=== PATIENT | female | born 1955 ===

== ENCOUNTER 2017-08-01 14:10 | Inpatient (IN) | payer MEDICAID ==
[2017-08-01] MEDS ORDERED: Oxycodone/Acetaminophen 5/325 mg Tab ONE (14:40)
[2017-08-01] MEDS ORDERED: Oxycodone/Acetaminophen 5/325 mg Tab PO ONE (14:45)
--- NOTE | 2017-08-01 14:59 | RAD ---
HISTORY: SOB COMPARISON: Chest radiograph 06/17/2012. TECHNIQUE: Chest PA and lateral FINDINGS: LUNGS: No infiltrate is appreciate bilaterally although there is some crowding of the bilateral bronchovascular markings. PLEURA: No significant pleural effusion identified. No pneumothorax apparent. CARDIOVASCULAR: Normal. OSSEOUS STRUCTURES: No significant abnormalities. VISUALIZED UPPER ABDOMEN: Normal. OTHER FINDINGS: None. IMPRESSION: Crowding of the bronchovascular markings is seen at the bilateral bases. No acute infiltrate or pleural effusion bilaterally.
--- NOTE | 2017-08-01 15:00 | C.PDOC ---
History Of Present Illness 62 y/o female with a hx of asthma and diabetes, c/o swelling and pain to the left leg that began today. Patient goes to the clinic here at [facility]. Denies chest pain, SOB, palpitations, abdominal pain, trauma to the legs, or any other complaints. Time Seen by Provider: 08/01/17 14:15 Chief Complaint (Nursing): Lower Extremity Problem/Injury History Per: Patient History/Exam Limitations: no limitations Onset/Duration Of Symptoms: Hrs Current Symptoms Are (Timing): Still Present Severity: Mild Recent travel outside of the [place]: No Additional History Per: Patient Past Medical History Reviewed: Historical Data, Nursing Documentation, Vital Signs Vital Signs: Last Vital Signs Temp 97.3 F L 08/01/17 14:31 Pulse 93 H 08/01/17 16:05 Resp 20 08/01/17 16:05 BP 137/69 08/01/17 16:05 Pulse Ox 99 08/01/17 16:23 - Medical History PMH: Arthritis, Bronchitis, Diabetes, Hypercholesterolemia, Osteoporosis Family History: States: Unknown Family Hx - Social History Hx Alcohol Use: Yes Hx Substance Use: No Review Of Systems Except As Marked, All Systems Reviewed And Found Negative. Constitutional: Negative for: Other (trauma) Cardiovascular: Negative for: Chest Pain, Palpitations Respiratory: Negative for: Shortness of Breath Gastrointestinal: Negative for: Abdominal Pain Musculoskeletal: Positive for: Leg Pain (Pain and swelling to the left leg) Neurological: Negative for: Weakness, Numbness Physical Exam - Physical Exam Appears: Non-toxic, No Acute Distress Skin: Warm, Dry Head: Atraumatic, Normacephalic Oral Mucosa: Moist Chest: Symmetrical Cardiovascular: Rhythm Regular, No Murmur Respiratory: Normal Breath Sounds, No Rales, No Rhonchi, No Wheezing Gastrointestinal/Abdominal: Soft, No Tenderness Back: No CVA Tenderness Extremity: Normal ROM, Tenderness (Tenderness to palpation.), Capillary Refill ( <2secs), Swelling (Swelling to the left lower extremity) Pulses: Left Dorsalis Pedis: Normal, Right Dorsalis Pedis: Normal Neurological/Psych: Oriented x3 Gait: Steady ED Course And Treatment - Laboratory Results Result Diagrams: 08/01/17 14:58 08/01/17 14:58 Lab Interpretation: No Acute Changes ECG: Interpreted By Me ECG Rhythm: Sinus Rhythm ECG Interpretation: No Acute Changes Rate From EC O2 Sat by Pulse Oximetry: 99 (RA) Pulse Ox Interpretation: Normal - Radiology CXR: Interpreted by Me CXR Interpretation: Yes: No Acute Disease Progress Note: Doppler US LE: left leg (+) DVT. Treated with lovenox 80 mg SQ Reassessment Condition: Improved - Physician Consult Information Physician Contacted: Brandon Velez Jr. Outcome Of Conversation: admit Medical Decision Making Medical Decision Making: Plans: * EKG * Blood labs * Percocet * IV fluids * UA * Vascular lab Disposition Discussed With Dr.: Brandon Velez Jr. Doctor Will See Patient In The: Hospital - Disposition Disposition: HOSPITALIZED Disposition Time: 16:30 Condition: STABLE - POA Present On Arrival: None - Clinical Impression Clinical Impression: Deep venous thrombosis of lower extremity - Scribe Statement The provider has reviewed the documentation as recorded by the Scribe Jacki irby All medical record entries made by the Scribe were at my direction and personally dictated by me. I have reviewed the chart and agree that the record accurately reflects my personal performance of the history, physical exam, medical decision making, and the department course for this patient. I have also personally directed, reviewed, and agree with the discharge instructions and disposition. Decision To Admit - Pt Status Changed To: Hospital Disposition Of: Inpatient - Admit Certification Admit to Inpatient:: After my assessment, the patient will require hospitalization for at least two midnights. This is because of the severity of symptoms shown, intensity of services needed, and/or the medical risk in this patient being treated as an outpatient. - InPatient: Physician Admission Certification: I certify that this patient requires 2 or more midnights of care for the following reason:: Extensive DVT - . Bed Request Type: Regular Admitting Physician: Brandon Velez Jr. Patient Diagnosis: Deep venous thrombosis of lower extremity
[2017-08-01 15:08] LABS: EOS # 0.2 K/uL (0.0-0.7); MONO # 0.7 K/uL (0.0-0.8)
[2017-08-01 15:14] LABS: BASO # 0.2 K/uL (0.0-0.2); BASO % 1.2 % (0.0-2.0); EOS % 1.3 % (0.0-4.0); HEMATOCRIT 46.2 % (34.0-47.0); LYMPH # 4.5 K/uL (1.0-4.3); LYMPH % 31.8 % (20.0-40.0); MEAN CELL VOLUME 90.6 fL (81.0-99.0); MEAN CORPUSCULAR HGB CONC 34.3 g/dL (33.0-37.0); MEAN PLATELET VOLUME 10.8 fL (7.2-11.7); NRBC % 0.6 % (0.0-2.0); RED CELL DISTRIBUTION WIDTH 13.2 % (11.5-14.5); WHITE BLOOD COUNT 14.2 K/uL (4.8-10.8)
[2017-08-01] MEDS ORDERED: Enoxaparin 40 mg Syringe SC STA (15:43)
[2017-08-01 15:54] LABS: ALB/GLOB RATIO 1.3 (1.0-2.1); ALKALINE PHOSPHATASE 92 U/L (38-126); ALT/SGPT 21 U/L (9-52); AST/SGOT 46 U/L (14-36); BILIRUBIN,TOTAL 1.3 mg/dL (0.2-1.3); BLOOD UREA NITROGEN 16 mg/dL (7-17); CALCIUM 9.6 mg/dl (8.6-10.4); CARBON DIOXIDE 16 mmol/L (22-30); CHLORIDE 100 mmol/L (98-107); GFR AFRICAN-AMERICAN > 60; POTASSIUM 5.2 mmol/L (3.6-5.2); SODIUM 134 mmol/L (132-148); TOTAL PROTEIN 8.6 g/dL (6.3-8.3)
[2017-08-01] MEDS ORDERED: Enoxaparin 80 mg Syringe ONE (15:55)
[2017-08-01] MEDS ORDERED: Morphine 4 MG/ML VIAL ONE (16:05)
[2017-08-01 16:41] LABS: GLUCOSE,RANDOM 433 mg/dL (65-105)
[2017-08-01] MEDS ORDERED: Sodium Chloride 0.9% 1,000 ML IV ONE (16:48)
--- NOTE | 2017-08-01 17:35 | CP.PCM.HP ---
History of Present Illness - History of Present Illness History of Present Illness: Medicine H/P CC: Leg Pain HPI: Patience is a 62F with a PMH of DM, CAD, HLD comes to the ED with acute onset of L. Leg pain. She states the pain is very severe and nothing makes it better or worse. She describes the pain as sharp. The pain radiates up the leg from below the knee. She describes it as very severe. It has been constant since its onset. She is also complaining of SOB, cough and chest pain. She was given lovenox 80mg in the ED as well as morphine for the pain. She denies any nausea, vomiting, fever, chills or diarrhea ROS: Per HPI PMH: DM, HLD, CAD PSH: denies FH: noncontributory SH: smoked for 4 years but has not smoked in the last week, social drinker, no drugs Meds: Metformin, insulin All: None Present on Admission - Present on Admission Any Indicators Present on Admission: No Review of Systems - Review of Systems All systems: reviewed and no additional remarkable complaints except (per hpi) Past Patient History - Past Social History Smoking Status: Light Smoker < 10 Cigarettes Daily - CARDIAC Hx Hypercholesterolemia: Yes - PULMONARY Hx Bronchitis: Yes - ENDOCRINE/METABOLIC Hx Endocrine Disorders: Yes Hx Diabetes Mellitus Type 1: Yes - MUSCULOSKELETAL/RHEUMATOLOGICAL Hx Arthritis: Yes Hx Osteoporosis: Yes - PSYCHIATRIC Hx Substance Use: No - SURGICAL HISTORY Hx Surgeries: No Meds Allergies/Adverse Reactions: Allergies Allergy/AdvReac Type Severity Reaction Status Date / Time No Known Allergies Allergy Verified 08/01/17 14:22 Physical Exam - Constitutional Additional comments: clearly anxious and in pain - Head Exam Head Exam: ATRAUMATIC, NORMAL INSPECTION, NORMOCEPHALIC - Eye Exam Eye Exam: EOMI Pupil Exam: NORMAL ACCOMODATION - ENT Exam ENT Exam: Mucous Membranes Moist - Respiratory Exam Respiratory Exam: Clear to Auscultation Bilateral, NORMAL BREATHING PATTERN - Cardiovascular Exam Cardiovascular Exam: REGULAR RHYTHM - GI/Abdominal Exam GI & Abdominal Exam: Normal Bowel Sounds, Soft. absent: Distended, Tenderness - Extremities Exam Extremities exam: Positive for: calf tenderness, joint swelling, tenderness Additional comments: L leg is more swollen than the left and very tender to palpation - Neurological Exam Neurological exam: Alert, Oriented x3 - Psychiatric Exam Psychiatric exam: Normal Affect, Normal Mood - Skin Skin Exam: Dry, Intact, Normal Color, Warm Results - Vital Signs Recent Vital Signs: Last Vital Signs Temp 97.3 F L 08/01/17 14:31 Pulse 93 H 08/01/17 16:05 Resp 20 08/01/17 16:05 BP 137/69 08/01/17 16:05 Pulse Ox 99 08/01/17 16:25 - Labs Result Diagrams: 08/01/17 14:58 08/01/17 14:58 Labs: Laboratory Results - last 24 hr 08/01/17 08/01/17 08/01/17 14:58 14:58 15:42 WBC 14.2 H RBC 5.10 Hgb 15.8 Hct 46.2 MCV 90.6 MCH 31.0 MCHC 34.3 RDW 13.2 Plt Count 184 MPV 10.8 Neut % (Auto) 60.7 Lymph % (Auto) 31.8 [place] % (Auto) 5.0 Eos % (Auto) 1.3 Baso % (Auto) 1.2 Neut # 8.6 H Lymph # 4.5 H [place] # 0.7 Eos # 0.2 Baso # 0.2 PT 11.1 INR 1.0 APTT 24 Sodium 134 Potassium 5.2 Chloride 100 Carbon Dioxide 16 L Anion Gap 23 H BUN 16 Creatinine 0.7 Est GFR ( Amer) > 60 Est GFR (Non-Af Amer) > 60 Random Glucose 433 H* Calcium 9.6 Total Bilirubin 1.3 AST 46 H ALT 21 Alkaline Phosphatase 92 NT-Pro-B Natriuret Pep 19.9 Total Protein 8.6 H Albumin 4.8 Globulin 3.8 Albumin/Globulin Ratio 1.3 Assessment & Plan (1) Deep venous thrombosis of lower extremity Assessment and Plan: Vascular (Danielson) Consider IVC filter CTA - F/U Prelim LE Doppler - Extensive LLE DVT Lovenox 80 SC Q12 Morphine 2 IV Q4 PRN Status: Acute Priority: High (2) Diabetes Assessment and Plan: ISS High accuchecks zestril 2.5 PO QD Crestor 20 PO HS Status: Chronic Priority: Medium
[2017-08-01] MEDS ORDERED: Sodium Chloride 0.9% 1,000 ML ONE (17:56)
[2017-08-01] MEDS ORDERED: Iodixanol 320 MG/ML 100 ML BOTTLE IV ONE (18:02)
--- NOTE | 2017-08-01 19:17 | CT ---
EXAM: CT Angiography Chest With Intravenous Contrast EXAM DATE/TIME: 08/01/2017 5:12 PM CLINICAL HISTORY: 62 years old, female; Signs and symptoms; Other: Dvt left leg; Additional info: R/O pe TECHNIQUE: Axial computed tomographic angiography images of the chest with intravenous contrast using pulmonary embolism protocol. All CT scans at this facility use one or more dose reduction techniques, viz.: automated exposure control; ma/kV adjustment per patient size (including targeted exams where dose is matched to indication; i.e. head); or iterative reconstruction technique. MIP reconstructed images were created and reviewed. Coronal and sagittal reformatted images were created and reviewed. CONTRAST: 100 mL of VISIPAQUE administered intravenously. COMPARISON: There are no prior studies for comparison. FINDINGS: Artifacts: Motion artifact degrades image quality. Heart, Aorta and Pulmonary arteries: Heart size is normal. There are coronary artery calcifications.There is no aneurysm or dissection.There are vascular calcifications. Streak and motion limit evaluation of pulmonary arteries. There are bilateral lower lobe pulmonary emboli. There are upper lobe pulmonary emboli right greater than left. Middle lobe vessels are difficult to evaluate. Lungs and Pleural Spaces: Trachea and main bronchi are patent.There is no pneumothorax. There is no lobar or segmental consolidation. There is subsegmental atelectasis in the lingula. There is atelectasis and scarring at the lung bases. There is dependent atelectasis bilaterally. There are no effusions. Mediastinum: There are mildly prominent mediastinal and hilar nodes. Esophagus is unremarkable. Thyroid: Thyroid is not optimally demonstrated. Bones/joints: Bony structures are osteopenic with degenerative change. Soft tissues: unremarkable Upper abdomen: There are no acute abnormalities in the visualized portion of the abdomen.Pancreas is atrophic. IMPRESSION: Limited by streak and patient motion, bilateral pulmonary emboli, clot burden in greatest in lower lobe arteries, no focal pneumonia
--- NOTE | 2017-08-01 22:21 | CP.PCM.CON ---
History of Present Illness - History of Present Illness History of Present Illness: Vascular Surgery Consult Note for Dr. Hinkle Reason for Consult: Left lower extremity DVT, IVC filter placement 62 F with PMH of DM, HLD, CAD present with left lower extremity pain/swelling and shortness of breath. Patient states that she has had leg pain and swelling for 2-3 weeks. He reports the SOB has been present for a few days. She states a sudden onset of leg pain and states it has gotten progressively. Patient states she never had this type of pain before. She rates pain as severe. She describes the pain as constant and sharp localized to the left thigh. Denies any alleviating or exacerbating factors. Denies any fever/chills, chest pain, palpitations, abdominal pain, nausea/vomiting, diarrhea. PMH: DM, HLD, CAD Meds: As per EMR Allergy: NKDA PSH: denies Hosp: denies FH: noncontributory SH: current smoker - smokes 4 cigarettes per day for years, social drinker, denies illicit drug use Review of Systems - Review of Systems All systems: reviewed and no additional remarkable complaints except (SOB, leg pain/edema) Past Patient History - Past Social History Smoking Status: Former Smoker - CARDIAC Hx Hypercholesterolemia: Yes - PULMONARY Hx Bronchitis: Yes - NEUROLOGICAL Hx Neurological Disorder: No - HEENT Hx HEENT Problems: No - ENDOCRINE/METABOLIC Hx Endocrine Disorders: Yes Hx Diabetes Mellitus Type 1: Yes - HEMATOLOGICAL/ONCOLOGICAL Hx Blood Transfusions: No - INTEGUMENTARY Hx Dermatological Problems: No - MUSCULOSKELETAL/RHEUMATOLOGICAL Hx Falls: No - GASTROINTESTINAL Hx Gastrointestinal Disorders: No - GENITOURINARY/GYNECOLOGICAL Hx Genitourinary Disorders: No - PSYCHIATRIC Hx Substance Use: No - SURGICAL HISTORY Hx Surgeries: No - ANESTHESIA Hx Anesthesia Reactions: No Hx Malignant Hyperthermia: No Has any member of the family had a problem w/ anesthesia?: No Meds Allergies/Adverse Reactions: Allergies Allergy/AdvReac Type Severity Reaction Status Date / Time No Known Allergies Allergy Verified 08/01/17 14:22 - Medications Medications: Current Medications Docusate Sodium (Colace) 100 mg PO BID PRN PRN Reason: Constipation Enoxaparin Sodium (Lovenox) 80 mg SC Q12H [facility] Ibuprofen (Motrin Tab) 400 mg PO Q6 PRN PRN Reason: Fever >100.4 F Insulin Human Regular (Novolin R) 0 unit SC ACHS [facility] PRN Reason: Protocol Lisinopril (Zestril) 2.5 mg PO DAILY [facility] Morphine Sulfate (Morphine) 2 mg IVP Q4H PRN PRN Reason: Pain, moderate (4-7) Ondansetron HCl (Zofran Inj) 4 mg IVP Q6 PRN PRN Reason: Nausea/Vomiting Rosuvastatin Calcium (Crestor) 20 mg PO HS [facility] Physical Exam - Constitutional Appears: No Acute Distress - Head Exam Head Exam: ATRAUMATIC, NORMOCEPHALIC - Eye Exam Eye Exam: Normal appearance - ENT Exam ENT Exam: Mucous Membranes Moist - Respiratory Exam Respiratory Exam: NORMAL BREATHING PATTERN - Cardiovascular Exam Cardiovascular Exam: REGULAR RHYTHM - GI/Abdominal Exam GI & Abdominal Exam: Soft. absent: Tenderness - Extremities Exam Extremities exam: Positive for: normal capillary refill, pedal pulses present Additional comments: Left leg: edematous, tender to palpation, DP/PT/popliteal found with doppler Left foot slightly colder to touch than the right foot - Back Exam Back exam: absent: CVA tenderness (L), CVA tenderness (R) - Neurological Exam Neurological exam: Alert, CN II-XII Intact - Psychiatric Exam Psychiatric exam: Normal Affect, Normal Mood - Skin Skin Exam: Dry, Intact, Normal Color Results - Vital Signs Recent Vital Signs: Last Vital Signs Temp 97.6 F 08/01/17 19:52 Pulse 96 H 08/01/17 19:52 Resp 20 08/01/17 19:52 BP 164/74 H 08/01/17 19:52 Pulse Ox 97 08/01/17 19:52 - Labs Result Diagrams: 08/01/17 14:58 08/01/17 14:58 Labs: Laboratory Results - last 24 hr 08/01/17 08/01/17 08/01/17 14:58 14:58 15:42 WBC 14.2 H RBC 5.10 Hgb 15.8 Hct 46.2 MCV 90.6 MCH 31.0 MCHC 34.3 RDW 13.2 Plt Count 184 MPV 10.8 Neut % (Auto) 60.7 Lymph % (Auto) 31.8 [place] % (Auto) 5.0 Eos % (Auto) 1.3 Baso % (Auto) 1.2 Neut # 8.6 H Lymph # 4.5 H [place] # 0.7 Eos # 0.2 Baso # 0.2 PT 11.1 INR 1.0 APTT 24 Sodium 134 Potassium 5.2 Chloride 100 Carbon Dioxide 16 L Anion Gap 23 H BUN 16 Creatinine 0.7 Est GFR ( Amer) > 60 Est GFR (Non-Af Amer) > 60 POC Glucose (mg/dL) Random Glucose 433 H* Calcium 9.6 Total Bilirubin 1.3 AST 46 H ALT 21 Alkaline Phosphatase 92 NT-Pro-B Natriuret Pep 19.9 Total Protein 8.6 H Albumin 4.8 Globulin 3.8 Albumin/Globulin Ratio 1.3 08/01/17 08/01/17 18:54 21:41 WBC RBC Hgb Hct MCV MCH MCHC RDW Plt Count MPV Neut % (Auto) Lymph % (Auto) [place] % (Auto) Eos % (Auto) Baso % (Auto) Neut # Lymph # [place] # Eos # Baso # PT INR APTT Sodium Potassium Chloride Carbon Dioxide Anion Gap BUN Creatinine Est GFR ( Amer) Est GFR (Non-Af Amer) POC Glucose (mg/dL) 361 H 368 H Random Glucose Calcium Total Bilirubin AST ALT Alkaline Phosphatase NT-Pro-B Natriuret Pep Total Protein Albumin Globulin Albumin/Globulin Ratio Assessment & Plan - Assessment and Plan (Free Text) Plan: 62 F with bilateral pulmonary embolisms and Left lower extremity DVT -Therapeutic lovenox -Possible IVC filter placement today -Analgesics PRN -Management as per primary -Discussed with Dr. Arin Bruner PGY1
[2017-08-01 22:58] LABS: RBC URINE 1 /hpf (0-3); URINE BILIRUBIN NEGATIVE (NEGATIVE); URINE BLOOD NEGATIVE (NEGATIVE); URINE COLOR Yellow (YELLOW); URINE GLUCOSE (UA) 3+ mg/dL (Normal); URINE KETONE TRACE mg/dL (NEGATIVE); URINE LEUKOCYTE ESTERASE NEG Leu/uL (Negative); URINE PROTEIN NEGATIVE (NEGATIVE); URINE UROBILINOGEN NORMAL mg/dL (0.2-1.0); WBC URINE 1 /hpf (0-5)
[2017-08-01] MEDS: (Novolin R) Insulin Human Regular 100 units/ml vial SC SCH (23:12)
[2017-08-02] MEDS: Enoxaparin 80 mg Syringe SC SCH ×2 (03:54→16:30)
[2017-08-02] MEDS: (Novolin R) Insulin Human Regular 100 units/ml vial SC SCH ×5 (08:21→22:06)
[2017-08-02 08:52] LABS: BASO # 0.1 K/uL (0.0-0.2); BASO % 0.7 % (0.0-2.0); EOS % 0.2 % (0.0-4.0); HEMATOCRIT 43.2 % (34.0-47.0); LYMPH # 3.9 K/uL (1.0-4.3); LYMPH % 27.2 % (20.0-40.0); MEAN CELL VOLUME 91.1 fL (81.0-99.0); MEAN CORPUSCULAR HEMOGLOBIN 30.9 pg (27.0-31.0); MEAN CORPUSCULAR HGB CONC 33.9 g/dL (33.0-37.0); MEAN PLATELET VOLUME 11.5 fL (7.2-11.7); MONO # 0.7 K/uL (0.0-0.8); NRBC % 0.2 % (0.0-2.0); RED CELL DISTRIBUTION WIDTH 13.5 % (11.5-14.5); WHITE BLOOD COUNT 14.4 K/uL (4.8-10.8)
[2017-08-02] MEDS ORDERED: Midazolam 2 MG/2 ML VIAL ONE (08:56)
[2017-08-02] MEDS ORDERED: Iodixanol 320 MG/ML 200 ML BOTTLE IV ONE (09:17)
[2017-08-02] MEDS ORDERED: Lidocaine 2% w Epi 1:100,000 Inj IJ ONE (09:17)
[2017-08-02] MEDS ORDERED: HEPARIN-NS 5,000 UNITS/500 ML 5,000 UNIT/500 ML BAG IV ONE (09:17)
[2017-08-02 09:22] LABS: ALB/GLOB RATIO 1.5 (1.0-2.1); ALKALINE PHOSPHATASE 90 U/L (38-126); ALT/SGPT 29 U/L (9-52); AST/SGOT 27 U/L (14-36); BILIRUBIN,TOTAL 1.1 mg/dL (0.2-1.3); BLOOD UREA NITROGEN 20 mg/dL (7-17); CALCIUM 8.6 mg/dl (8.6-10.4); CARBON DIOXIDE 13 mmol/L (22-30); CHLORIDE 98 mmol/L (98-107); GFR AFRICAN-AMERICAN > 60; GLUCOSE,RANDOM 387 mg/dL (65-105); POTASSIUM 4.3 mmol/L (3.6-5.2); SODIUM 132 mmol/L (132-148); TOTAL PROTEIN 7.4 g/dL (6.3-8.3)
[2017-08-02] MEDS ORDERED: Lactated Ringer's 1,000 ML IV ONE (09:29)
[2017-08-02] MEDS: ceFAZolin IV 1 gm in Dextrose 1 GM/50 ML BAG IVPB ONE ×2 (09:31→09:41)
--- NOTE | 2017-08-02 09:56 | CP.PCM.PN ---
Subjective - Date & Time of Evaluation Date of Evaluation: 08/02/17 Time of Evaluation: 09:54 - Subjective Subjective: Patient seen and examined. Much less distress Going for IVC filter today No other complaints at this time Objective - Vital Signs/Intake and Output Vital Signs (last 24 hours): Temp Pulse Resp BP Pulse Ox 98.4 F 106 H 20 150/91 H 97 08/02/17 08:41 08/02/17 08:41 08/02/17 08:41 08/02/17 08:41 08/02/17 08:41 Intake and Output: 08/02/17 08/02/17 06:59 18:59 Intake Total 240 Balance 240 - Medications Medications: Current Medications Docusate Sodium (Colace) 100 mg PO BID PRN PRN Reason: Constipation Enoxaparin Sodium (Lovenox) 80 mg SC Q12H [facility] Last Admin: 08/02/17 03:54 Dose: 80 mg Ibuprofen (Motrin Tab) 400 mg PO Q6 PRN PRN Reason: Fever >100.4 F Insulin Human Regular (Novolin R) 0 unit SC ACHS [place] PRN Reason: Protocol Last Admin: 08/02/17 08:21 Dose: 10 unit Lisinopril (Zestril) 2.5 mg PO DAILY [facility] Morphine Sulfate (Morphine) 2 mg IVP Q4H PRN PRN Reason: Pain, moderate (4-7) Last Admin: 08/02/17 03:55 Dose: 2 mg Ondansetron HCl (Zofran Inj) 4 mg IVP Q6 PRN PRN Reason: Nausea/Vomiting Rosuvastatin Calcium (Crestor) 20 mg PO HS [facility] Last Admin: 08/01/17 23:12 Dose: 20 mg - Labs Labs: 08/02/17 08:38 08/02/17 08:38 PT 11.1 SECONDS (9.7-12.2) 08/01/17 15:42 INR 1.0 08/01/17 15:42 APTT 24 SECONDS (21-34) 08/01/17 15:42 - Additional Findings Additional findings: - Head Exam Head Exam: ATRAUMATIC, NORMAL INSPECTION, NORMOCEPHALIC - Eye Exam Eye Exam: EOMI Pupil Exam: NORMAL ACCOMODATION - ENT Exam ENT Exam: Mucous Membranes Moist - Respiratory Exam Respiratory Exam: Clear to Auscultation Bilateral, NORMAL BREATHING PATTERN - Cardiovascular Exam Cardiovascular Exam: REGULAR RHYTHM - GI/Abdominal Exam GI & Abdominal Exam: Normal Bowel Sounds, Soft. absent: Distended, Tenderness - Extremities Exam Extremities exam: Positive for: calf tenderness, joint swelling, tenderness Additional comments: L leg is more swollen than the left and very tender to palpation - Neurological Exam Neurological exam: Alert, Oriented x3 - Psychiatric Exam Psychiatric exam: Normal Affect, Normal Mood - Skin Skin Exam: Dry, Intact, Normal Color, Warm Assessment and Plan (1) Pulmonary embolism, bilateral Assessment & Plan: CTA - Bilateral PE most in the Lower lobes Vascular (Arin) lovenox 80 SC Q12 IVC filter today Status: Acute (2) Deep venous thrombosis of lower extremity Assessment & Plan: Vascular (Arin) IVC filter today thombectomy tomorrow Prelim LE Doppler - Extensive LLE DVT Lovenox 80 SC Q12 Morphine 2 IV Q4 PRN Restoril 30 PO HS Status: Acute (3) Hypercoagulable state Assessment & Plan: R/O Pelvic mass Pelvic US - F/U CEA CA 125 CA 19-9 Status: Acute (4) Diabetes Assessment & Plan: ISS High accuchecks zestril 2.5 PO QD Crestor 20 PO HS A1C 9.1 Status: Chronic
[2017-08-02] MEDS ORDERED: Labetalol 25mg/5ml Syringe ONE (10:03)
[2017-08-02] MEDS ORDERED: HYDROmorphone 0.5 mg/0.5 ml ISec IVP PRN (10:13)
--- NOTE | 2017-08-02 10:21 | PCM.SURG1 ---
Surgeon's Initial Post Op Note - Surgeon's Notes Surgeon: Arin Upholstery Cutter: PGY4 Type of Anesthesia: IV Sedation, Local Pre-Operative Diagnosis: Bilateral pulmonary embolism, LLE DVT Operative Findings: good placement of IVC filter Post-Operative Diagnosis: Bilateral pulmonary embolism, LLE DVT Operation Performed: Insertion of retrievable IVC filter Specimen/Specimens Removed: N/A Estimated Blood Loss: EBL {In ML}: 20 Blood Products Given: N/A Drains Used: No Drains Post-Op Condition: Good Date of Surgery/Procedure: 08/02/17 Time of Surgery/Procedure: 09:30
--- NOTE | 2017-08-02 11:34 | RAD ---
PROCEDURE: Intraoperative fluoroscopy HISTORY: LT. LOWER EXTREMITY DVT AND PE COMPARISON: Not available TECHNIQUE: Intraoperative fluoroscopy was provided for inferior vena caval filter placement. Total time of fluoroscopy was 71.6 seconds. FINDINGS: Four fluoroscopic spot films are submitted. Films are on file for review. IMPRESSION: Fluoroscopy provided.
--- NOTE | 2017-08-02 15:49 | VASCLAB ---
PROCEDURE: Lower Extremity Venous Duplex Exam. HISTORY: edema PRIORS: None. TECHNIQUE: Bilateral common femoral, femoral, popliteal and posterior tibial, peroneal and great saphenous veins were evaluated. Flow was assessed with color Doppler, compressibility, assessment of phasic flow and augmentation response. Report prepared by IVY Long, RVT FINDINGS: RIGHT: 1. Common Femoral Vein: 1.1. Compressibility - Fully compressible: Thrombus - None : Flow - Phasic: Augmentation -Normal: Reflux - None. 2. Femoral Vein: 2.1. Compressibility - Fully compressible: Thrombus - None : Flow - Phasic: Augmentation -Normal: Reflux - None. 3. Popliteal Vein: 3.1. Compressibility - Fully compressible: Thrombus - None : Flow - Phasic: Augmentation -Normal: Reflux - None. 4. Posterior Tibial Vein: 4.1. Compressibility - Fully compressible: Thrombus - None: Flow - Phasic: Augmentation -Normal: Reflux - None. 5. Peroneal Vein: 5.1. Compressibility - Fully compressible: Thrombus - None: Flow - Phasic: Augmentation -Normal: Reflux - None. 6. Great Saphenous Vein: 6.1. Compressibility - Fully compressible: Thrombus - None: Flow - Phasic: Augmentation - Normal: Reflux - None. LEFT: 1. Common Femoral Vein: 1.1. Compressibility - Partial: Thrombus - Acute: Flow - Absent : Augmentation -None: Reflux - None. 2. Femoral Vein: 2.1. Compressibility - Partial: Thrombus - Acute: Flow - Absent : Augmentation -None: Reflux - None. 3. Popliteal Vein: 3.1. Compressibility - Partial: Thrombus - Acute : Flow - Absent : Augmentation -None: Reflux - None. 4. Posterior Tibial Vein: 4.1. Compressibility - Partial: Thrombus - Acute: Flow - Absent : Augmentation -None: Reflux - None. 5. Peroneal Vein: 5.1. Compressibility - Partial: Thrombus - Acute: Flow - Absent : Augmentation -None: Reflux - None. 6. Great Saphenous Vein: 6.1. Compressibility - Partial: Thrombus - Acute: Flow - Absent : Augmentation - None: Reflux - None. OTHER FINDINGS: SARAH Gonzalez notified about the findings. IMPRESSION: Right: No evidence of deep or superficial vein thrombosis of the right lower extremity. Normal valve function noted of the right side. Left: Acute thrombosis of the left lower extremity with severe reduction of the venous return.
--- NOTE | 2017-08-02 19:46 | OP ---
PROCEDURE DATE: 08/02/2017 PREOPERATIVE DIAGNOSES: Deep vein thrombosis of left leg and pulmonary embolism. PROCEDURE CARRIED OUT: Placement of [place] removal of filter via right femoral vein with C-arm fluoroscopy, ultrasound-guided puncture, and micropuncture technique. SURGEON: Patrick Hinkle Jr., MD MACHINE RUG CLEANER: Dr. Pleitez. ANESTHESIOLOGIST: Mr. Sterling. INDICATIONS: The patient is a middle-aged woman, history of leg swelling, found to have an extensive DVT involving up to and superior to common femoral vein. Because of her pulmonary embolism, filter will be inserted. Discussion will be had regarding thrombolytic therapy for the left leg. PROCEDURE: The patient was given local anesthesia and using ultrasound guidance, right femoral wrist punctured. Initially, a micropuncture was made into the femoral artery after this had been controlled. We then placed a filter via the right groin. Placing a vena cavagram showing location of the complex of aortic veins and location of the renal veins. Filter was then deployed just below the level of the renal veins in an upright position with minimal tilt. It was flushed with heparinized saline. Catheter was removed. Subsequent pictures again confirmed the findings of its position. We then applied pressure to the groin and bleeding was terminated. Blood loss in the procedure was 5 mL. Operation carried out, placement of [place] removal of filter via right femoral vein with C-arm fluoroscopy, ultrasound-guided puncture and micropuncture technique. Ultrasound images from the groin shows that the vein was approximately 14 mm in diameter with normal compressibility and no intraluminal thrombosis. Patrick Hinkle Jr., MD
--- NOTE | 2017-08-02 22:23 | CARD ---
APPROVED REPORT EKG Measurement Heart [id number] OH [id number] [id number] <Conclusion> Normal sinus rhythm Minimal voltage criteria for LVH, may be normal variant Possible Anterior infarct, age undetermined Abnormal ECG
--- NOTE | 2017-08-02 23:17 | US ---
EXAM: US Pelvis Complete, Transabdominal US Pelvis, Transvaginal CLINICAL HISTORY: 62 years old, female; Signs and symptoms; Other: R/O ovarian /pelvic mass; Additional info: R/O ovarian/pelvic mass TECHNIQUE: Real-time transabdominal and transvaginal pelvic ultrasound (complete) with image documentation. Transvaginal imaging was used for better evaluation of the endometrium and adnexa. COMPARISON: No relevant prior studies available. FINDINGS: Uterus/cervix: Heterogeneous in echogenicity and unremarkable in size measuring 7.2 x 3.3 x 4.2 cm. A fibroid is detected within the mid body of the uterus measuring 11 mm in greatest dimension. Normal endometrial stripe thickness, measuring 1.9 mm. Despite prolonged interrogation, neither ovary was visualized. Free fluid: No free fluid. IMPRESSION: Fibroid uterus. Despite prolonged interrogation, neither ovary was visualized. Patient unable to void during examination.
[2017-08-03] MEDS: Enoxaparin 80 mg Syringe SC SCH ×2 (04:20→16:45)
[2017-08-03 07:47] LABS: BASO # 0.1 K/uL (0.0-0.2); BASO % 0.8 % (0.0-2.0); EOS # 0.1 K/uL (0.0-0.7); EOS % 0.8 % (0.0-4.0); HEMATOCRIT 41.7 % (34.0-47.0); LYMPH % 26.9 % (20.0-40.0); MEAN CORPUSCULAR HGB CONC 34.4 g/dL (33.0-37.0); MEAN PLATELET VOLUME 11.7 fL (7.2-11.7); MONO % 6.6 % (0.0-10.0); NRBC % 0.3 % (0.0-2.0); RED CELL DISTRIBUTION WIDTH 13.1 % (11.5-14.5); WHITE BLOOD COUNT 14.9 K/uL (4.8-10.8)
[2017-08-03] MEDS: (Novolin R) Insulin Human Regular 100 units/ml vial SC SCH ×4 (08:42→22:10)
[2017-08-03 08:53] LABS: CARCINOEMBRYONIC ANTIGEN 2.1 ng/mL (0-3.0)
[2017-08-03 08:56] LABS: CA 19-9 < 1.4 U/mL (0-37)
[2017-08-03 09:27] LABS: ALB/GLOB RATIO 1.4 (1.0-2.1); ALKALINE PHOSPHATASE 92 U/L (38-126); ALT/SGPT 28 U/L (9-52); AST/SGOT 32 U/L (14-36); BILIRUBIN,TOTAL 1.3 mg/dL (0.2-1.3); BLOOD UREA NITROGEN 20 mg/dL (7-17); CALCIUM 9.1 mg/dl (8.6-10.4); CARBON DIOXIDE 16 mmol/L (22-30); CHLORIDE 96 mmol/L (98-107); GFR AFRICAN-AMERICAN > 60; GLUCOSE,RANDOM 399 mg/dL (65-105); POTASSIUM 4.4 mmol/L (3.6-5.2); SODIUM 129 mmol/L (132-148)
[2017-08-03] MEDS ORDERED: Promethazine/Cod 6.25mg-10mg/5ml Syr UD PO PRN (09:33)
--- NOTE | 2017-08-03 09:36 | CP.PCM.PN ---
Subjective - Date & Time of Evaluation Date of Evaluation: 08/03/17 Time of Evaluation: 09:34 - Subjective Subjective: Patient seen and examined still having pain in her leg but states it is better complaining of cough no other complaints at this time Objective - Vital Signs/Intake and Output Vital Signs (last 24 hours): Temp Pulse Resp BP Pulse Ox 98.3 F 101 H 18 123/81 95 08/03/17 07:25 08/03/17 07:25 08/03/17 07:25 08/03/17 07:25 08/03/17 07:25 Intake and Output: 08/03/17 08/03/17 06:59 18:59 Intake Total 480 Balance 480 - Medications Medications: Current Medications Docusate Sodium (Colace) 100 mg PO BID PRN PRN Reason: Constipation Enoxaparin Sodium (Lovenox) 80 mg SC Q12H [facility] Last Admin: 08/03/17 04:20 Dose: 80 mg Ibuprofen (Motrin Tab) 400 mg PO Q6 PRN PRN Reason: Fever >100.4 F Insulin Human Regular (Novolin R) 0 unit SC ACHS [facility] PRN Reason: Protocol Last Admin: 08/03/17 08:42 Dose: 8 unit Lisinopril (Zestril) 2.5 mg PO DAILY [facility] Last Admin: 08/02/17 11:42 Dose: 2.5 mg Morphine Sulfate (Morphine) 2 mg IVP Q4H PRN PRN Reason: Pain, moderate (4-7) Last Admin: 08/02/17 11:42 Dose: 2 mg Ondansetron HCl (Zofran Inj) 4 mg IVP Q6 PRN PRN Reason: Nausea/Vomiting Promethazine HCl/Codeine (Phenergan/Codeine Oral Syrup) 5 ml PO Q4 PRN PRN Reason: Cough Rosuvastatin Calcium (Crestor) 20 mg PO HS [facility] Last Admin: 08/02/17 22:05 Dose: 20 mg Temazepam (Restoril) 30 mg PO HS PRN PRN Reason: Insomnia Last Admin: 08/02/17 23:13 Dose: 30 mg - Labs Labs: 08/03/17 07:39 08/03/17 07:39 PT 11.1 SECONDS (9.7-12.2) 08/01/17 15:42 INR 1.0 08/01/17 15:42 APTT 24 SECONDS (21-34) 08/01/17 15:42 - Additional Findings Additional findings: - Head Exam Head Exam: ATRAUMATIC, NORMAL INSPECTION, NORMOCEPHALIC - Eye Exam Eye Exam: EOMI Pupil Exam: NORMAL ACCOMODATION - ENT Exam ENT Exam: Mucous Membranes Moist - Respiratory Exam Respiratory Exam: Clear to Auscultation Bilateral, NORMAL BREATHING PATTERN - Cardiovascular Exam Cardiovascular Exam: REGULAR RHYTHM - GI/Abdominal Exam GI & Abdominal Exam: Normal Bowel Sounds, Soft. absent: Distended, Tenderness - Extremities Exam Extremities exam: Positive for: calf tenderness, joint swelling, tenderness Additional comments: L leg is more swollen than the left and very tender to palpation - Neurological Exam Neurological exam: Alert, Oriented x3 - Psychiatric Exam Psychiatric exam: Normal Affect, Normal Mood - Skin Skin Exam: Dry, Intact, Normal Color, Warm Assessment and Plan (1) Pulmonary embolism, bilateral Assessment & Plan: CTA - Bilateral PE most in the Lower lobes Vascular (Arin) lovenox 80 SC Q12 IVC filter 08/02/17 Status: Acute (2) Deep venous thrombosis of lower extremity Assessment & Plan: Vascular (Arin) IVC filter 08/03/17 thombectomy sunday Prelim LE Doppler - Extensive LLE DVT Lovenox 80 SC Q12 Morphine 2 IV Q4 PRN Restoril 30 PO HS Status: Acute (3) Hypercoagulable state Assessment & Plan: R/O Pelvic mass Pelvic US - fibroid uterus, Ovaries not visualized CEA - 2.1 CA 125 - <5.5 CA 19-9 - <1.4 F/U CT Status: Acute (4) Diabetes Assessment & Plan: ISS High accuchecks zestril 2.5 PO QD Crestor 20 PO HS A1C 9.1 Status: Chronic (5) Cough Assessment & Plan: dry cough promethazine Status: Acute
--- NOTE | 2017-08-03 15:38 | CT ---
PROCEDURE: CT Abdomen and Pelvis without intravenous contrast HISTORY: R/O mass COMPARISON: None. TECHNIQUE: Without contrast.. Contrast Dose: 0 Radiation dose: Total exam DLP = 826.48 mGy-cm. This CT exam was performed using one or more of the following dose reduction techniques: Automated exposure control, adjustment of the mA and/or kV according to patient size, and/or use of iterative reconstruction technique. FINDINGS: LOWER THORAX: Linear scar/ atelectasis in lingular segment left upper lobe. LIVER: Normal size, contour and attenuation. No mass. No biliary dilatation. Smooth contour. GALLBLADDER AND BILE DUCTS: Vicarious excretion of previously administered contrast material. No mural thickening. No evidence of cholelithiasis. . PANCREAS: Unremarkable. No gross lesion or ductal dilatation. SPLEEN: Unremarkable. ADRENALS: Unremarkable. No mass. KIDNEYS AND URETERS: No renal mass, calculus or hydronephrosis. There is persistent enhancement of the right renal cortex status post administration of intravenous contrast on examination of the 08/01/[address] angiography of the chest. This raises concern for right renal dysfunction. . The fact that this asymmetrically involves the right kidney is of uncertain significance. . Nevertheless, please correlate with renal function testing. VASCULATURE: Inferior vena caval filter. No aortic aneurysm. BOWEL: Unremarkable. No obstruction. No gross mural thickening. APPENDIX: Unremarkable. Normal appendix. PERITONEUM: Unremarkable. No free fluid. No free air. LYMPH NODES: Unremarkable. No enlarged lymph nodes. BLADDER: Unremarkable. REPRODUCTIVE: Unremarkable uterus BONES: No acute fracture. OTHER FINDINGS: There is edema in the subcutaneous soft tissues of the left thigh left lateral gluteal region. There is infiltration about and enlargement of the muscles of the left lower extremity that are included on this examination. This hazy infiltration about the musculature extends to involve the left iliacus and iliopsoas muscles. There are in origin veins seen along left pelvic side wall. This is likely related to the known lower extremity deep venous thrombosis. IMPRESSION: Infiltration about and enlargement of the left lower extremity musculature and of the left iliopsoas muscle. Subcutaneous edema of the left thigh. Engorgement of left pelvic sidewall veins. Findings consistent with extensive left lower extremity deep venous thrombosis as previously demonstrated. No pelvic mass. Inferior vena caval filter noted. Persistent right renal nephrographic phase following previous intravenous contrast administration on 08/01/2017. This raises concern for right renal dysfunction.
--- NOTE | 2017-08-03 16:23 | CP.PCM.PN ---
Subjective - Date & Time of Evaluation Date of Evaluation: 08/03/17 Time of Evaluation: 06:40 - Subjective Subjective: Vascular Surgery Note for Dr. Hinkle Patient seen and examined at bedside. No acute event overnight. She is s/p IVC filter placement POD#1. Patient still complaining of LLE pain and swelling. She states it is unchanged but controlled with medications. Patient is tolerating diet and having BMs. She will go for thrombolysis/thrombectomy on Sunday. Objective - Vital Signs/Intake and Output Vital Signs (last 24 hours): Temp Pulse Resp BP Pulse Ox 98 F 108 H 20 123/74 96 08/03/17 15:55 08/03/17 15:55 08/03/17 15:55 08/03/17 15:55 08/03/17 15:55 Intake and Output: 08/03/17 08/03/17 06:59 18:59 Intake Total 480 Balance 480 - Medications Medications: Current Medications Docusate Sodium (Colace) 100 mg PO BID PRN PRN Reason: Constipation Last Admin: 08/03/17 10:54 Dose: 100 mg Enoxaparin Sodium (Lovenox) 80 mg SC Q12H [facility] Last Admin: 08/03/17 04:20 Dose: 80 mg Ibuprofen (Motrin Tab) 400 mg PO Q6 PRN PRN Reason: Fever >100.4 F Insulin Human Regular (Novolin R) 0 unit SC ACHS [facility] PRN Reason: Protocol Last Admin: 08/03/17 11:53 Dose: 12 unit Lisinopril (Zestril) 2.5 mg PO DAILY [facility] Last Admin: 08/03/17 10:54 Dose: 2.5 mg Morphine Sulfate (Morphine) 2 mg IVP Q4H PRN PRN Reason: Pain, moderate (4-7) Last Admin: 08/02/17 11:42 Dose: 2 mg Ondansetron HCl (Zofran Inj) 4 mg IVP Q6 PRN PRN Reason: Nausea/Vomiting Promethazine HCl/Codeine (Phenergan/Codeine Oral Syrup) 5 ml PO Q4 PRN PRN Reason: Cough Last Admin: 08/03/17 11:53 Dose: 5 ml Rosuvastatin Calcium (Crestor) 20 mg PO HS [facility] Last Admin: 08/02/17 22:05 Dose: 20 mg Temazepam (Restoril) 30 mg PO HS PRN PRN Reason: Insomnia Last Admin: 08/02/17 23:13 Dose: 30 mg - Labs Labs: 08/03/17 07:39 08/03/17 07:39 PT 11.1 SECONDS (9.7-12.2) 08/01/17 15:42 INR 1.0 08/01/17 15:42 APTT 24 SECONDS (21-34) 08/01/17 15:42 - Constitutional Appears: No Acute Distress - Head Exam Head Exam: ATRAUMATIC, NORMOCEPHALIC - Eye Exam Eye Exam: Normal appearance - ENT Exam ENT Exam: Mucous Membranes Moist - Respiratory Exam Respiratory Exam: NORMAL BREATHING PATTERN - Cardiovascular Exam Cardiovascular Exam: Tachycardia - GI/Abdominal Exam GI & Abdominal Exam: Soft. absent: Tenderness - Extremities Exam Additional comments: Left leg: edematous, tender to palpation, DP/PT/popliteal found with doppler Right leg: no swelling, nontender, 2+ pulses throughout - Neurological Exam Neurological Exam: Alert, Awake, Oriented x3 - Psychiatric Exam Psychiatric exam: Normal Affect, Normal Mood - Skin Skin Exam: Dry, Intact, Normal Color, Warm Assessment and Plan - Assessment and Plan (Free Text) Plan: 62 F with bilateral pulmonary embolisms and Left lower extremity DVT, s/p IVC filter POD#1 -Plan for Thrombolysis/thrombectomy Sunday -NPO past midnight on Sunday evening -Continue anticoagulation -Analgesics PRN -Management as per primary -Discussed with Dr. Arin Bruner PGY1
--- NOTE | 2017-08-03 23:43 | CP.PCM.CON ---
Past Patient History - Past Social History Smoking Status: Former Smoker - CARDIAC Hx Hypercholesterolemia: Yes - PULMONARY Hx Bronchitis: Yes - NEUROLOGICAL Hx Neurological Disorder: No - HEENT Hx HEENT Problems: No - ENDOCRINE/METABOLIC Hx Endocrine Disorders: Yes Hx Diabetes Mellitus Type 1: Yes - HEMATOLOGICAL/ONCOLOGICAL Hx Blood Transfusions: No - INTEGUMENTARY Hx Dermatological Problems: No - MUSCULOSKELETAL/RHEUMATOLOGICAL Hx Falls: No - GASTROINTESTINAL Hx Gastrointestinal Disorders: No - GENITOURINARY/GYNECOLOGICAL Hx Genitourinary Disorders: No - PSYCHIATRIC Hx Substance Use: No - SURGICAL HISTORY Hx Surgeries: No - ANESTHESIA Hx Anesthesia Reactions: No Hx Malignant Hyperthermia: No Has any member of the family had a problem w/ anesthesia?: No Meds Allergies/Adverse Reactions: Allergies Allergy/AdvReac Type Severity Reaction Status Date / Time No Known Allergies Allergy Verified 08/01/17 14:22 - Medications Medications: Current Medications Docusate Sodium (Colace) 100 mg PO BID PRN PRN Reason: Constipation Last Admin: 08/03/17 10:54 Dose: 100 mg Enoxaparin Sodium (Lovenox) 80 mg SC Q12H [facility] Last Admin: 08/03/17 16:45 Dose: 80 mg Ibuprofen (Motrin Tab) 400 mg PO Q6 PRN PRN Reason: Fever >100.4 F Insulin Human Regular (Novolin R) 0 unit SC ACHS [facility] PRN Reason: Protocol Last Admin: 08/03/17 22:10 Dose: 3 unit Lisinopril (Zestril) 2.5 mg PO DAILY [facility] Last Admin: 08/03/17 10:54 Dose: 2.5 mg Morphine Sulfate (Morphine) 2 mg IVP Q4H PRN PRN Reason: Pain, moderate (4-7) Last Admin: 08/02/17 11:42 Dose: 2 mg Ondansetron HCl (Zofran Inj) 4 mg IVP Q6 PRN PRN Reason: Nausea/Vomiting Promethazine HCl/Codeine (Phenergan/Codeine Oral Syrup) 5 ml PO Q4 PRN PRN Reason: Cough Last Admin: 08/03/17 11:53 Dose: 5 ml Rosuvastatin Calcium (Crestor) 20 mg PO HS [facility] Last Admin: 08/03/17 22:10 Dose: 20 mg Temazepam (Restoril) 30 mg PO HS PRN PRN Reason: Insomnia Last Admin: 08/03/17 22:10 Dose: 30 mg Physical Exam - Constitutional Appears: Well - Head Exam Head Exam: ATRAUMATIC, NORMAL INSPECTION, NORMOCEPHALIC - Eye Exam Eye Exam: EOMI, Normal appearance, PERRL Pupil Exam: NORMAL ACCOMODATION, PERRL - ENT Exam ENT Exam: Mucous Membranes Moist, Normal Exam - Neck Exam Neck exam: Positive for: Normal Inspection - Respiratory Exam Respiratory Exam: Decreased Breath Sounds - Cardiovascular Exam Cardiovascular Exam: REGULAR RHYTHM, +S1, +S2 - GI/Abdominal Exam GI & Abdominal Exam: Diminished Bowel Sounds, Soft - Rectal Exam Rectal Exam: Deferred Results - Vital Signs Recent Vital Signs: Last Vital Signs Temp 98 F 08/03/17 15:55 Pulse 105 H 08/03/17 16:00 Resp 20 08/03/17 15:55 BP 123/74 08/03/17 15:55 Pulse Ox 96 08/03/17 15:55 - Labs Result Diagrams: 08/03/17 07:39 08/03/17 07:39 Labs: Laboratory Results - last 24 hr 08/03/17 08/03/17 08/03/17 02:07 06:39 07:39 WBC 14.9 H RBC 4.63 Hgb 14.3 Hct 41.7 MCV 90.0 MCH 31.0 MCHC 34.4 RDW 13.1 Plt Count 194 MPV 11.7 Neut % (Auto) 64.9 Lymph % (Auto) 26.9 Bertie % (Auto) 6.6 Eos % (Auto) 0.8 Baso % (Auto) 0.8 Neut # 9.7 H Lymph # 4.0 Bertie # 1.0 H Eos # 0.1 Baso # 0.1 Sodium Potassium Chloride Carbon Dioxide Anion Gap BUN Creatinine Est GFR ( Amer) Est GFR (Non-Af Amer) POC Glucose (mg/dL) 377 H 349 H Random Glucose Calcium Total Bilirubin AST ALT Alkaline Phosphatase Total Protein Albumin Globulin Albumin/Globulin Ratio Carcinoembryonic Ag CA 19-9 Antigen CA 125 Antigen 08/03/17 08/03/17 08/03/17 07:39 11:12 16:22 WBC RBC Hgb Hct MCV MCH MCHC RDW Plt Count MPV Neut % (Auto) Lymph % (Auto) Bertie % (Auto) Eos % (Auto) Baso % (Auto) Neut # Lymph # Bertie # Eos # Baso # Sodium 129 L Potassium 4.4 Chloride 96 L Carbon Dioxide 16 L Anion Gap 21 H BUN 20 H Creatinine 0.9 Est GFR ( Amer) > 60 Est GFR (Non-Af Amer) > 60 POC Glucose (mg/dL) 435 H* 461 H* Random Glucose 399 H Calcium 9.1 Total Bilirubin 1.3 AST 32 ALT 28 Alkaline Phosphatase 92 Total Protein 7.0 Albumin 4.1 Globulin 3.0 Albumin/Globulin Ratio 1.4 Carcinoembryonic Ag 2.1 CA 19-9 Antigen < 1.4 CA 125 Antigen < 5.5 08/03/17 21:24 WBC RBC Hgb Hct MCV MCH MCHC RDW Plt Count MPV Neut % (Auto) Lymph % (Auto) Bertie % (Auto) Eos % (Auto) Baso % (Auto) Neut # Lymph # Bertie # Eos # Baso # Sodium Potassium Chloride Carbon Dioxide Anion Gap BUN Creatinine Est GFR ( Amer) Est GFR (Non-Af Amer) POC Glucose (mg/dL) 383 H Random Glucose Calcium Total Bilirubin AST ALT Alkaline Phosphatase Total Protein Albumin Globulin Albumin/Globulin Ratio Carcinoembryonic Ag CA 19-9 Antigen CA 125 Antigen
[2017-08-04] MEDS: Enoxaparin 80 mg Syringe SC SCH ×2 (03:12→17:00)
[2017-08-04] MEDS: (Novolin R) Insulin Human Regular 100 units/ml vial SC SCH ×4 (08:07→22:20)
[2017-08-04 08:08] LABS: BASO # 0.1 K/uL (0.0-0.2); BASO % 1.2 % (0.0-2.0); EOS # 0.2 K/uL (0.0-0.7); EOS % 1.6 % (0.0-4.0); HEMATOCRIT 39.9 % (34.0-47.0); LYMPH # 3.4 K/uL (1.0-4.3); LYMPH % 26.6 % (20.0-40.0); MEAN CELL VOLUME 89.3 fL (81.0-99.0); MEAN CORPUSCULAR HEMOGLOBIN 31.1 pg (27.0-31.0); MEAN CORPUSCULAR HGB CONC 34.9 g/dL (33.0-37.0); MEAN PLATELET VOLUME 11.4 fL (7.2-11.7); MONO # 0.8 K/uL (0.0-0.8); MONO % 6.2 % (0.0-10.0); NRBC % 0.2 % (0.0-2.0); RED CELL DISTRIBUTION WIDTH 13.1 % (11.5-14.5); WHITE BLOOD COUNT 12.8 K/uL (4.8-10.8)
[2017-08-04 08:57] LABS: ALB/GLOB RATIO 1.3 (1.0-2.1); ALKALINE PHOSPHATASE 90 U/L (38-126); ALT/SGPT 27 U/L (9-52); AST/SGOT 35 U/L (14-36); BILIRUBIN,TOTAL 1.1 mg/dL (0.2-1.3); BLOOD UREA NITROGEN 24 mg/dL (7-17); CALCIUM 8.9 mg/dl (8.6-10.4); CARBON DIOXIDE 20 mmol/L (22-30); CHLORIDE 95 mmol/L (98-107); GFR AFRICAN-AMERICAN > 60; POTASSIUM 4.2 mmol/L (3.6-5.2); SODIUM 129 mmol/L (132-148); TOTAL PROTEIN 6.7 g/dL (6.3-8.3)
[2017-08-04 09:13] LABS: GLUCOSE,RANDOM 452 mg/dL (65-105)
--- NOTE | 2017-08-04 10:14 | CP.PCM.PN ---
Subjective - Date & Time of Evaluation Date of Evaluation: 08/04/17 Time of Evaluation: 08:00 - Subjective Subjective: Vascular Surgery Dr. Hinkle Pt S&E @bedside. NORI. pt c/o LLE pain. pt denies F/C, SOB, CP, N/V. tolerating diet. Objective - Vital Signs/Intake and Output Vital Signs (last 24 hours): Temp Pulse Resp BP Pulse Ox 98.2 F 95 H 17 138/82 94 L 08/04/17 07:15 08/04/17 09:05 08/04/17 07:15 08/04/17 07:15 08/04/17 07:15 Intake and Output: 08/04/17 08/04/17 06:59 18:59 Intake Total 250 Output Total 1 Balance 249 - Medications Medications: Current Medications Docusate Sodium (Colace) 100 mg PO BID PRN PRN Reason: Constipation Last Admin: 08/04/17 09:39 Dose: 100 mg Enoxaparin Sodium (Lovenox) 80 mg SC Q12H [facility] Last Admin: 08/04/17 03:12 Dose: 80 mg Ibuprofen (Motrin Tab) 400 mg PO Q6 PRN PRN Reason: Fever >100.4 F Insulin Human Regular (Novolin R) 0 unit SC ACHS [facility] PRN Reason: Protocol Last Admin: 08/04/17 08:07 Dose: 10 unit Lisinopril (Zestril) 2.5 mg PO DAILY [facility] Last Admin: 08/04/17 09:39 Dose: 2.5 mg Morphine Sulfate (Morphine) 2 mg IVP Q4H PRN PRN Reason: Pain, moderate (4-7) Last Admin: 08/02/17 11:42 Dose: 2 mg Ondansetron HCl (Zofran Inj) 4 mg IVP Q6 PRN PRN Reason: Nausea/Vomiting Promethazine HCl/Codeine (Phenergan/Codeine Oral Syrup) 5 ml PO Q4 PRN PRN Reason: Cough Last Admin: 08/03/17 11:53 Dose: 5 ml Rosuvastatin Calcium (Crestor) 20 mg PO HS [facility] Last Admin: 08/03/17 22:10 Dose: 20 mg Temazepam (Restoril) 30 mg PO HS PRN PRN Reason: Insomnia Last Admin: 08/03/17 22:10 Dose: 30 mg - Labs Labs: 08/04/17 08:01 08/04/17 08:01 PT 11.1 SECONDS (9.7-12.2) 08/01/17 15:42 INR 1.0 08/01/17 15:42 APTT 24 SECONDS (21-34) 08/01/17 15:42 - Constitutional Appears: Non-toxic, No Acute Distress - Head Exam Head Exam: NORMAL INSPECTION - Eye Exam Eye Exam: Normal appearance - ENT Exam ENT Exam: Mucous Membranes Moist - Respiratory Exam Respiratory Exam: NORMAL BREATHING PATTERN. absent: Accessory Muscle Use, Respiratory Distress - Cardiovascular Exam Cardiovascular Exam: absent: Bradycardia, Tachycardia - GI/Abdominal Exam GI & Abdominal Exam: Soft. absent: Distended, Tenderness - Extremities Exam Additional comments: LLE edematous and TTP palpable R DP L DP not appreciable - Neurological Exam Neurological Exam: Alert, Awake, Oriented x3 - Psychiatric Exam Psychiatric exam: Normal Affect, Normal Mood - Skin Skin Exam: Dry, Intact, Normal Color, Warm Assessment and Plan - Assessment and Plan (Free Text) Assessment: 62 F with bilateral pulmonary embolisms and Left lower extremity DVT, s/p IVC filter POD#1 - Thrombolysis/thrombectomy Sunday - Cont anticoagulation - cont pain management - cont medical management per primary Pt discussed w/ Dr. Arni Fung DO PGY2
--- NOTE | 2017-08-04 16:05 | CP.PCM.PN ---
Subjective - Date & Time of Evaluation Date of Evaluation: 08/04/17 Time of Evaluation: 10:00 - Subjective Subjective: clinically same Objective - Vital Signs/Intake and Output Vital Signs (last 24 hours): Temp Pulse Resp BP Pulse Ox 98.2 F 95 H 17 138/82 94 L 08/04/17 07:15 08/04/17 09:05 08/04/17 07:15 08/04/17 07:15 08/04/17 07:15 Intake and Output: 08/04/17 08/04/17 06:59 18:59 Intake Total 250 Output Total 1 Balance 249 - Medications Medications: Current Medications Docusate Sodium (Colace) 100 mg PO BID PRN PRN Reason: Constipation Last Admin: 08/04/17 09:39 Dose: 100 mg Enoxaparin Sodium (Lovenox) 80 mg SC Q12H [facility] Last Admin: 08/04/17 03:12 Dose: 80 mg Ibuprofen (Motrin Tab) 400 mg PO Q6 PRN PRN Reason: Fever >100.4 F Insulin Human Regular (Novolin R) 0 unit SC ACHS [facility] PRN Reason: Protocol Last Admin: 08/04/17 12:03 Dose: 10 unit Lisinopril (Zestril) 2.5 mg PO DAILY [facility] Last Admin: 08/04/17 09:39 Dose: 2.5 mg Morphine Sulfate (Morphine) 2 mg IVP Q4H PRN PRN Reason: Pain, moderate (4-7) Last Admin: 08/02/17 11:42 Dose: 2 mg Ondansetron HCl (Zofran Inj) 4 mg IVP Q6 PRN PRN Reason: Nausea/Vomiting Promethazine HCl/Codeine (Phenergan/Codeine Oral Syrup) 5 ml PO Q4 PRN PRN Reason: Cough Last Admin: 08/03/17 11:53 Dose: 5 ml Rosuvastatin Calcium (Crestor) 20 mg PO HS [facility] Last Admin: 08/03/17 22:10 Dose: 20 mg Temazepam (Restoril) 30 mg PO HS PRN PRN Reason: Insomnia Last Admin: 08/03/17 22:10 Dose: 30 mg - Labs Labs: 08/04/17 08:01 08/04/17 08:01 PT 11.1 SECONDS (9.7-12.2) 08/01/17 15:42 INR 1.0 08/01/17 15:42 APTT 24 SECONDS (21-34) 08/01/17 15:42 - Constitutional Appears: Well - Head Exam Head Exam: ATRAUMATIC, NORMAL INSPECTION, NORMOCEPHALIC - Eye Exam Eye Exam: EOMI, Normal appearance, PERRL Pupil Exam: NORMAL ACCOMODATION, PERRL - ENT Exam ENT Exam: Mucous Membranes Moist, Normal Exam - Neck Exam Neck Exam: Full ROM, Normal Inspection. absent: Lymphadenopathy - Respiratory Exam Respiratory Exam: Decreased Breath Sounds - Cardiovascular Exam Cardiovascular Exam: REGULAR RHYTHM, +S1, +S2 - GI/Abdominal Exam GI & Abdominal Exam: Soft, Diminished Bowel Sounds - Rectal Exam Rectal Exam: Deferred
[2017-08-05] MEDS: Enoxaparin 80 mg Syringe SC SCH ×2 (03:00→18:16)
[2017-08-05 08:00] LABS: BASO # 0.1 K/uL (0.0-0.2); EOS # 0.4 K/uL (0.0-0.7); EOS % 3.2 % (0.0-4.0); LYMPH # 4.2 K/uL (1.0-4.3); LYMPH % 34.1 % (20.0-40.0); MEAN CELL VOLUME 89.2 fL (81.0-99.0); MEAN CORPUSCULAR HEMOGLOBIN 30.7 pg (27.0-31.0); MEAN CORPUSCULAR HGB CONC 34.4 g/dL (33.0-37.0); MONO # 0.8 K/uL (0.0-0.8); MONO % 6.8 % (0.0-10.0); NRBC % 0.1 % (0.0-2.0); RED CELL DISTRIBUTION WIDTH 12.9 % (11.5-14.5); WHITE BLOOD COUNT 12.2 K/uL (4.8-10.8)
[2017-08-05 08:16] LABS: ALB/GLOB RATIO 1.3 (1.0-2.1); ALKALINE PHOSPHATASE 93 U/L (38-126); ALT/SGPT 32 U/L (9-52); AST/SGOT 38 U/L (14-36); BILIRUBIN,TOTAL 1.1 mg/dL (0.2-1.3); BLOOD UREA NITROGEN 19 mg/dL (7-17); CALCIUM 8.7 mg/dl (8.6-10.4); CARBON DIOXIDE 23 mmol/L (22-30); CHLORIDE 96 mmol/L (98-107); GFR AFRICAN-AMERICAN > 60; GLUCOSE,RANDOM 345 mg/dL (65-105); POTASSIUM 3.6 mmol/L (3.6-5.2); SODIUM 129 mmol/L (132-148); TOTAL PROTEIN 6.4 g/dL (6.3-8.3)
--- NOTE | 2017-08-05 08:23 | CP.PCM.PN ---
Subjective - Date & Time of Evaluation Date of Evaluation: 08/05/17 Time of Evaluation: 06:55 - Subjective Subjective: Vascular Surgery Note for Dr. Hinkle Patient seen and examined at bedside. No acute event overnight. Patient states that LLE pain still present but improved. She will be NPO past MN for thrombolysis/thrombectomy on Sunday. Tolerating diet and having BMs. Denies Fever/chills, SOB, CP, N/V, diarrhea. Objective - Vital Signs/Intake and Output Vital Signs (last 24 hours): Temp Pulse Resp BP Pulse Ox 97.8 F 86 20 114/73 94 L 08/05/17 04:00 08/05/17 04:00 08/05/17 04:00 08/05/17 04:00 08/05/17 04:00 Intake and Output: 08/05/17 08/05/17 06:59 18:59 Output Total 400 Balance -400 - Medications Medications: Current Medications Docusate Sodium (Colace) 100 mg PO BID PRN PRN Reason: Constipation Last Admin: 08/04/17 17:00 Dose: 100 mg Ibuprofen (Motrin Tab) 400 mg PO Q6 PRN PRN Reason: Fever >100.4 F Insulin Human Regular (Novolin R) 0 unit SC ACHS [facility] PRN Reason: Protocol Last Admin: 08/04/17 22:20 Dose: 3 unit Lisinopril (Zestril) 2.5 mg PO DAILY [facility] Last Admin: 08/04/17 09:39 Dose: 2.5 mg Morphine Sulfate (Morphine) 2 mg IVP Q4H PRN PRN Reason: Pain, moderate (4-7) Last Admin: 08/04/17 22:45 Dose: 2 mg Ondansetron HCl (Zofran Inj) 4 mg IVP Q6 PRN PRN Reason: Nausea/Vomiting Promethazine HCl/Codeine (Phenergan/Codeine Oral Syrup) 5 ml PO Q4 PRN PRN Reason: Cough Last Admin: 08/03/17 11:53 Dose: 5 ml Rosuvastatin Calcium (Crestor) 20 mg PO HS [facility] Last Admin: 08/04/17 22:20 Dose: 20 mg Temazepam (Restoril) 30 mg PO HS PRN PRN Reason: Insomnia Last Admin: 08/04/17 22:20 Dose: 30 mg - Labs Labs: 08/05/17 07:35 08/05/17 07:35 PT 11.3 SECONDS (9.7-12.2) 08/05/17 07:35 INR 1.0 08/05/17 07:35 APTT 31 SECONDS (21-34) 08/05/17 07:35 - Constitutional Appears: No Acute Distress - Head Exam Head Exam: ATRAUMATIC, NORMOCEPHALIC - Eye Exam Eye Exam: EOMI, Normal appearance Pupil Exam: PERRL - ENT Exam ENT Exam: Mucous Membranes Moist - Respiratory Exam Respiratory Exam: NORMAL BREATHING PATTERN - Cardiovascular Exam Cardiovascular Exam: REGULAR RHYTHM - GI/Abdominal Exam GI & Abdominal Exam: Soft. absent: Tenderness - Extremities Exam Additional comments: LLE tenderness and edema - Neurological Exam Neurological Exam: Alert, Awake, Oriented x3 - Psychiatric Exam Psychiatric exam: Normal Affect, Normal Mood - Skin Skin Exam: Dry, Normal Color, Warm Assessment and Plan - Assessment and Plan (Free Text) Plan: 62 F with bilateral pulmonary embolisms and Left lower extremity DVT, s/p IVC filter POD#3 - NPO past MN for Thrombolysis/thrombectomy - Therapeutic Lovenox - Analgesics PRN - Management as per primary - Discussed with Dr. Arin Bruner PGY1
[2017-08-05] MEDS: (Novolin R) Insulin Human Regular 100 units/ml vial SC SCH ×4 (09:07→21:35)
--- NOTE | 2017-08-05 12:36 | CP.PCM.PN ---
Subjective - Date & Time of Evaluation Date of Evaluation: 08/05/17 Time of Evaluation: 10:20 - Subjective Subjective: clinically same Objective - Vital Signs/Intake and Output Vital Signs (last 24 hours): Temp Pulse Resp BP Pulse Ox 97.9 F 96 H 20 107/61 95 08/05/17 09:46 08/05/17 09:46 08/05/17 09:46 08/05/17 09:46 08/05/17 09:46 Intake and Output: 08/05/17 08/05/17 06:59 18:59 Output Total 400 Balance -400 - Medications Medications: Current Medications Docusate Sodium (Colace) 100 mg PO BID PRN PRN Reason: Constipation Last Admin: 08/04/17 17:00 Dose: 100 mg Ibuprofen (Motrin Tab) 400 mg PO Q6 PRN PRN Reason: Fever >100.4 F Insulin Human Regular (Novolin R) 0 unit SC ACHS [facility] PRN Reason: Protocol Last Admin: 08/05/17 12:04 Dose: 12 unit Lisinopril (Zestril) 2.5 mg PO DAILY [facility] Last Admin: 08/05/17 09:07 Dose: 2.5 mg Morphine Sulfate (Morphine) 2 mg IVP Q4H PRN PRN Reason: Pain, moderate (4-7) Last Admin: 08/04/17 22:45 Dose: 2 mg Ondansetron HCl (Zofran Inj) 4 mg IVP Q6 PRN PRN Reason: Nausea/Vomiting Promethazine HCl/Codeine (Phenergan/Codeine Oral Syrup) 5 ml PO Q4 PRN PRN Reason: Cough Last Admin: 08/03/17 11:53 Dose: 5 ml Rosuvastatin Calcium (Crestor) 20 mg PO HS [facility] Last Admin: 08/04/17 22:20 Dose: 20 mg Temazepam (Restoril) 30 mg PO HS PRN PRN Reason: Insomnia Last Admin: 08/04/17 22:20 Dose: 30 mg - Labs Labs: 08/05/17 07:35 08/05/17 07:35 PT 11.3 SECONDS (9.7-12.2) 08/05/17 07:35 INR 1.0 08/05/17 07:35 APTT 31 SECONDS (21-34) 08/05/17 07:35
[2017-08-06] MEDS ORDERED: (Novolin R) Insulin Human Regular 100 units/ml vial SC ONE ×2 (02:09→02:10)
[2017-08-06] MEDS: Enoxaparin 80 mg Syringe SC SCH (05:50)
[2017-08-06] MEDS ORDERED: Propofol 10 mg/ml Inj (20 ML) ONE (07:32)
[2017-08-06] MEDS ORDERED: Midazolam 2 MG/2 ML VIAL ONE ×2 (07:32→07:33)
[2017-08-06 07:33] LABS: BASO # 0.1 K/uL (0.0-0.2); BASO % 1.1 % (0.0-2.0); EOS # 0.4 K/uL (0.0-0.7); EOS % 3.2 % (0.0-4.0); HEMATOCRIT 38.2 % (34.0-47.0); LYMPH # 3.9 K/uL (1.0-4.3); LYMPH % 31.6 % (20.0-40.0); MEAN CELL VOLUME 89.7 fL (81.0-99.0); MEAN CORPUSCULAR HEMOGLOBIN 31.3 pg (27.0-31.0); MEAN CORPUSCULAR HGB CONC 34.9 g/dL (33.0-37.0); MEAN PLATELET VOLUME 11.7 fL (7.2-11.7); MONO # 0.9 K/uL (0.0-0.8); MONO % 7.2 % (0.0-10.0); NRBC % 0.1 % (0.0-2.0); WHITE BLOOD COUNT 12.4 K/uL (4.8-10.8)
[2017-08-06] MEDS ORDERED: Alteplase 20 MG in Sodium Chloride 0.9% 100 ML IV ONE (08:00)
[2017-08-06 08:07] LABS: ALB/GLOB RATIO 1.3 (1.0-2.1); ALKALINE PHOSPHATASE 110 U/L (38-126); ALT/SGPT 32 U/L (9-52); AST/SGOT 39 U/L (14-36); BLOOD UREA NITROGEN 14 mg/dL (7-17); CALCIUM 8.8 mg/dl (8.6-10.4); CARBON DIOXIDE 24 mmol/L (22-30); CHLORIDE 97 mmol/L (98-107); GFR AFRICAN-AMERICAN > 60; GLUCOSE,RANDOM 346 mg/dL (65-105); POTASSIUM 4.2 mmol/L (3.6-5.2); SODIUM 132 mmol/L (132-148); TOTAL PROTEIN 6.6 g/dL (6.3-8.3)
[2017-08-06] MEDS ORDERED: Heparin25000 units/250ml 1/2NS 25,000 UNITS/250 ML BAG IV ONE (08:07)
[2017-08-06] MEDS: (Novolin R) Insulin Human Regular 100 units/ml vial SC SCH ×4 (08:18→21:26)
[2017-08-06] MEDS ORDERED: Iodixanol 320 MG/ML 100 ML BOTTLE IV ONE ×3 (09:01→09:31)
[2017-08-06] MEDS ORDERED: Iodixanol 320 MG/ML 200 ML BOTTLE IV ONE (09:35)
--- NOTE | 2017-08-06 10:29 | PCM.SURG1 ---
Surgeon's Initial Post Op Note - Surgeon's Notes Surgeon: howard Stone Planer: 0 Type of Anesthesia: IV Sedation Anesthesia Administered By: shari Pre-Operative Diagnosis: ileo femoral dvt left side Operative Findings: extensive clot for sfv to ivc. 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 tpa and venous mechanical thrombolysis with angio jet. balloon angioplasty of iliac and ivc. 18x90 stent ot left common and external iliac Specimen/Specimens Removed: 0 Estimated Blood Loss: EBL {In ML}: 50 Blood Products Given: N/A Drains Used: No Drains Post-Op Condition: Good Date of Surgery/Procedure: 08/06/17 Time of Surgery/Procedure: 10:30
[2017-08-06] MEDS ORDERED: Succinylcholine Chloride 20 mg/ml Syr (5 ml) IV ONE (10:53)
--- NOTE | 2017-08-06 11:02 | CP.PCM.PN ---
Subjective - Date & Time of Evaluation Date of Evaluation: 08/06/17 Time of Evaluation: 11:40 - Subjective Subjective: Medicine Note ( PGY-1)----> Dr. Velez's service Patient was seen and examined at bedside in catherization lab PACU s/p thrombectomy. Patient was in appropriate pain as she is s/p surgical procedure. Patient states that she is doing better. Patient denies fever, chills, nausea, vomiting, cheat pain, palpitations, sob, numbness or tingling of the left leg. Objective - Vital Signs/Intake and Output Vital Signs (last 24 hours): Temp Pulse Resp BP Pulse Ox 98.5 F 94 H 20 143/82 94 L 08/06/17 06:40 08/06/17 06:40 08/06/17 06:40 08/06/17 06:40 08/06/17 06:40 - Medications Medications: Current Medications Docusate Sodium (Colace) 100 mg PO BID PRN PRN Reason: Constipation Last Admin: 08/05/17 15:49 Dose: 100 mg Heparin Sodium/Sodium Chloride (Heparin 84401 Units/250ml 1/2 Normal Saline) 25 ,000 units in 250 mls @ 14.696 mls/hr IV .Q17H1M PRN; Protocol; 18 UNITS/KG/HR PRN Reason: ADJUST RATE PER PROTOCOL Ibuprofen (Motrin Tab) 400 mg PO Q6 PRN PRN Reason: Fever >100.4 F Insulin Human Regular (Novolin R) 0 unit SC ACHS [facility] PRN Reason: Protocol Last Admin: 08/06/17 08:18 Dose: Not Given Lisinopril (Zestril) 2.5 mg PO DAILY [facility] Last Admin: 08/05/17 09:07 Dose: 2.5 mg Morphine Sulfate (Morphine) 2 mg IVP Q4 PRN PRN Reason: Pain, moderate (4-7) Stop: 08/10/17 23:59 Ondansetron HCl (Zofran Inj) 4 mg IVP Q6 PRN PRN Reason: Nausea/Vomiting Promethazine HCl/Codeine (Phenergan/Codeine Oral Syrup) 5 ml PO Q4 PRN PRN Reason: Cough Last Admin: 08/03/17 11:53 Dose: 5 ml Rosuvastatin Calcium (Crestor) 20 mg PO HS [facility] Last Admin: 08/05/17 21:34 Dose: 20 mg Temazepam (Restoril) 30 mg PO HS PRN PRN Reason: Insomnia Last Admin: 08/05/17 21:34 Dose: 30 mg - Labs Labs: 08/06/17 07:15 08/06/17 07:15 PT 11.3 SECONDS (9.7-12.2) 08/05/17 07:35 INR 1.0 08/05/17 07:35 APTT 31 SECONDS (21-34) 08/05/17 07:35 - Constitutional Appears: Well, No Acute Distress - Head Exam Head Exam: ATRAUMATIC, NORMAL INSPECTION - Eye Exam Eye Exam: EOMI, Normal appearance - Respiratory Exam Respiratory Exam: Clear to Ausculation Bilateral, NORMAL BREATHING PATTERN - Cardiovascular Exam Cardiovascular Exam: REGULAR RHYTHM, +S1, +S2 - GI/Abdominal Exam GI & Abdominal Exam: Soft, Normal Bowel Sounds. absent: Guarding, Rigid, Tenderness - Extremities Exam Additional comments: S/p TPA and venous mechanical thrombolysis with Angio Jet and ballon angioplasty of illiac and IVC, 18x90 stent of left common and external illiac, DAISY wrap dressing clean, intact and dry - Neurological Exam Neurological Exam: Alert, Awake, Oriented x3 - Psychiatric Exam Psychiatric exam: Normal Affect, Normal Mood - Skin Skin Exam: Normal Color Assessment and Plan (1) Pulmonary embolism, bilateral Assessment & Plan: Vascular surgeonDr. Hinkle on board Imaging: CTA: Bilateral PE, clot burden greatest in the lower lobe arteries Management/Medication: * Lovenox 80 SC Q12 * IVC filter 08/02/17 Status: Acute (2) Deep venous thrombosis of lower extremity Assessment & Plan: Vascular surgeonDr.McGovern on board Imagin08/01/17: Venous doppler LE: * Left extremity: acute thrombosis with severe reduction of venous return Surgical Intervention: * PA and venous mechanical thrombolysis with Angio Jet and ballon angioplasty of illiac and IVC, 18x90 stent of left common and external illiac (08/06/17) * IVC filter 08/02/17 MedicationS: * Lovenox 80mg SC Q12H * Morphine 2mg IVP Q4 PRN * Restoril 30mg PO HS Status: Acute (3) Hypercoagulable state Assessment & Plan: R/O hypercoagulable state secondary to malignancy CEA - 2.1 CA 125 - <5.5 CA 19-9 - <1.4 Imaging: Pelvis Ultrasound (08/02/17): Fibroid CT abdomen and pelvis w/o contrast (08/03/17): Findings consistent with extensive left lower extremity deep venous thrombosis as previously demonstrated. No pelvic mass. Inferior vena caval filter noted Status: Acute (4) Diabetes Assessment & Plan: Hemoglobin A1C: 9.1 (08/02/17) Accuchecks Lantus 12 units Q12H Novolog 12 units ACHS ISS- low dose protocol Lisinopril 2.5mg PO daily Hypoglycemic protocol Status: Chronic (5) Constipation Assessment & Plan: Medications: * Docusate 100mg PO BID PRN Status: Acute (6) Cough Assessment & Plan: Medication: * Promethazine HCl/ Codeine 5ml PO Q4 PRN Status: Acute (7) Prophylactic measure Assessment & Plan: GI: Protonix 20mg PO daily DVT: Lovenox 80mg SC Q12H Crestor 20mg HS Status: Acute
[2017-08-06] MEDS: Heparin25000 units/250ml 1/2NS 25,000 UNITS/250 ML BAG IV PRN (13:03)
[2017-08-06] MEDS ORDERED: Dextrose 50% SYRINGE Inj (50 ml) IVP PRN (16:04)
[2017-08-06] MEDS ORDERED: Glucagon Recombinant 1 mg Inj IM PRN (16:04)
[2017-08-06] MEDS: (Lantus) Insulin Glargine, Recombinant SC SCH (17:00)
[2017-08-06] MEDS: Lactated Ringer's 1,000 ML IV SCH ×2 (17:30→17:37)
[2017-08-06] MEDS: (Novolog) Insulin Aspart, Recombinant 100 u/ml 10 ml vial SC SCH ×2 (17:30→22:39)
--- NOTE | 2017-08-06 18:53 | CP.PCM.PN ---
Subjective - Date & Time of Evaluation Date of Evaluation: 08/06/17 Time of Evaluation: 10:00 - Subjective Subjective: clinically same Objective - Vital Signs/Intake and Output Vital Signs (last 24 hours): Temp Pulse Resp BP Pulse Ox 98.3 F 93 H 20 127/80 95 08/06/17 15:15 08/06/17 15:15 08/06/17 15:15 08/06/17 15:15 08/06/17 15:15 Intake and Output: 08/06/17 08/06/17 06:59 18:59 Output Total 2500 Balance -2500 - Medications Medications: Current Medications Dextrose (Dextrose 50% Inj) 0 ml IVP .STAT PRN; Protocol PRN Reason: Hypoglycemia Protocol Dextrose (Glutose 15) 0 gm PO .ONCE PRN; Protocol PRN Reason: Hypoglycemia Protocol Docusate Sodium (Colace) 100 mg PO BID PRN PRN Reason: Constipation Last Admin: 08/06/17 14:20 Dose: 100 mg Glucagon (Glucagen Diagnostic Kit) 0 mg IM .STAT PRN; Protocol PRN Reason: Hypoglycemia Protocol Heparin Sodium/Sodium Chloride (Heparin 13126 Units/250ml 1/2 Normal Saline) 25 ,000 units in 250 mls @ 14.696 mls/hr IV .Q17H1M PRN; Protocol; 18 UNITS/KG/HR PRN Reason: ADJUST RATE PER PROTOCOL Last Admin: 08/06/17 13:03 Dose: 18 units/kg/hr, 14.696 mls/hr Dextrose (Dextrose 5% In Water 1000 Ml) 1,000 mls @ 0 mls/hr IV .Q0M PRN; Protocol; Per Protocol PRN Reason: Hypoglycemia Protocol Lactated Ringer's (Lactated Ringer's) 1,000 mls @ 125 mls/hr IV .Q8H [facility] Last Admin: 08/06/17 17:37 Dose: 125 mls/hr Ibuprofen (Motrin Tab) 400 mg PO Q6 PRN PRN Reason: Fever >100.4 F Insulin Aspart (Novolog) 4 unit SC ACHS [facility] Last Admin: 08/06/17 17:30 Dose: 4 unit Insulin Glargine (Lantus) 12 unit SC Q12H [facility] Last Admin: 08/06/17 17:00 Dose: 12 units Insulin Human Regular (Novolin R) 0 unit SC ACHS [facility] PRN Reason: Protocol Last Admin: 08/06/17 17:00 Dose: 1 unit Lisinopril (Zestril) 2.5 mg PO DAILY [facility] Last Admin: 08/05/17 09:07 Dose: 2.5 mg Morphine Sulfate (Morphine) 2 mg IVP Q4 PRN PRN Reason: Pain, moderate (4-7) Stop: 08/10/17 23:59 Ondansetron HCl (Zofran Inj) 4 mg IVP Q6 PRN PRN Reason: Nausea/Vomiting Pantoprazole Sodium (Protonix Ec Tab) 20 mg PO DAILY [facility] Promethazine HCl/Codeine (Phenergan/Codeine Oral Syrup) 5 ml PO Q4 PRN PRN Reason: Cough Last Admin: 08/03/17 11:53 Dose: 5 ml Rosuvastatin Calcium (Crestor) 20 mg PO HS [facility] Last Admin: 08/05/17 21:34 Dose: 20 mg Temazepam (Restoril) 30 mg PO HS PRN PRN Reason: Insomnia Last Admin: 08/05/17 21:34 Dose: 30 mg - Labs Labs: 08/06/17 07:15 08/06/17 07:15 PT 11.3 SECONDS (9.7-12.2) 08/05/17 07:35 INR 1.0 08/05/17 07:35 APTT 31 SECONDS (21-34) 08/05/17 07:35
[2017-08-07] MEDS: Lactated Ringer's 1,000 ML IV SCH ×4 (00:03→18:11)
--- NOTE | 2017-08-07 03:33 | VAS ---
DATE: 08/06/2017 PREOPERATIVE DIAGNOSIS: Extensive iliofemoral deep vein thrombosis of left leg. POSTOPERATIVE DIAGNOSIS: Extensive iliofemoral deep vein thrombosis of left leg. PROCEDURE CARRIED OUT: Left lower extremity venogram, mechanical thrombolysis using Zelante AngioJet device of the femoral iliac, inferior vena cava, balloon angioplasty of the left common iliac, vena cava, and left external iliac and then placement of an 18 x 90 stent left common iliac and external iliac veins. SURGEON: Patrick Hinkle Jr., MD EARLY CHILDHOOD LEAD TEACHER: None. ANESTHESIOLOGIST: Mr. Abdirashid Shelton. ANESTHESIA: Local with sedation. INDICATIONS: The patient is a middle-aged woman, presented with extensive deep vein thrombosis and pulmonary embolism. OPERATIVE FINDINGS: 1. The initial venogram taken from popliteal puncture behind the knee using ultrasound guidance and micropuncture technique demonstrated extensive thrombosis involving the iliac vein as well as the femoral vein. Detailed pictures were unable to obtain because of the limitations with the injection from location. Nonetheless, we then used a powerful spray of t-PA, the appropriate concentration of the lysis and subsequent film showed that there was better opacification of the vein. After a 30-minute wait, we then went through with the AngioJet which removed radial clot. Subsequent pictures then revealed a tight stenosis just at the origin, we adjusted the complex iliac veins, just 1.5 cm below this and also the external iliac vein. These were initially ballooned with a 9-mm balloon and was exchanged with an 8-[place] sheath and subsequently with 10-[place] sheath and eventually, we deployed an 18 x 90 stent beginning at the complex iliac vein extending down to the external iliac. This showed excellent flow after this done with brisk return and the residual clot in this area. In addition, in the middle of this, we did see that there was clot at the bottom of the vena cava, so we had to go back at one time with the AngioJet device to suction this out and this appeared to have moved and left iliac filter was placed. Our final pictures showed excellent flow through the vena cava and through the iliac veins. There was no residual stenosis and brisk flow. Blood loss for the procedure was over 50 mL. OPERATION CARRIED OUT: 1. Venogram of left lower extremity with micropuncture technique and ultrasound guidance. 2. Venous thrombolysis using the Zelante AngioJet device, balloon angioplasty of the iliac veins, and then finally deployment of an 18 x 90 stent from the confluence of the iliac veins down to the external iliac on the left side. Incidentally, noted was a double collecting system on the left side. The patient will require a long-term anticoagulation. Patrick Hinkle Jr., MD cc: Brandon Velez MD
[2017-08-07] MEDS: (Lantus) Insulin Glargine, Recombinant SC SCH ×2 (04:57→17:00)
[2017-08-07] MEDS: Heparin25000 units/250ml 1/2NS 25,000 UNITS/250 ML BAG IV PRN (06:32)
[2017-08-07] MEDS: (Novolog) Insulin Aspart, Recombinant 100 u/ml 10 ml vial SC SCH ×4 (08:37→21:58)
[2017-08-07] MEDS: (Novolin R) Insulin Human Regular 100 units/ml vial SC SCH ×4 (08:38→21:59)
[2017-08-07 09:10] LABS: BASO # 0.1 K/uL (0.0-0.2); BASO % 0.5 % (0.0-2.0); EOS # 0.4 K/uL (0.0-0.7); EOS % 2.3 % (0.0-4.0); HEMATOCRIT 30.4 % (34.0-47.0); LYMPH # 4.2 K/uL (1.0-4.3); LYMPH % 25.4 % (20.0-40.0); MEAN CELL VOLUME 89.4 fL (81.0-99.0); MEAN CORPUSCULAR HEMOGLOBIN 31.3 pg (27.0-31.0); MEAN PLATELET VOLUME 11.5 fL (7.2-11.7); MONO # 1.3 K/uL (0.0-0.8); MONO % 7.9 % (0.0-10.0); NRBC % 0.1 % (0.0-2.0); RED CELL DISTRIBUTION WIDTH 13.2 % (11.5-14.5); WHITE BLOOD COUNT 16.6 K/uL (4.8-10.8)
--- NOTE | 2017-08-07 09:26 | CP.PCM.PN ---
Subjective - Date & Time of Evaluation Date of Evaluation: 08/07/17 Time of Evaluation: 07:00 - Subjective Subjective: VASCULAR SURGERY PROGRESS NOTE FOR DR. LYNN Patient seen and examined at bedside. She has some pain but it is improved. She reports less swelling. Still has hematuria but improved since yesterday. Objective - Vital Signs/Intake and Output Vital Signs (last 24 hours): Temp Pulse Resp BP Pulse Ox 97.8 F 71 20 115/72 96 08/07/17 08:32 08/07/17 08:32 08/07/17 08:32 08/07/17 08:32 08/07/17 08:32 Intake and Output: 08/07/17 08/07/17 06:59 18:59 Intake Total 490 Output Total 1150 Balance -660 - Medications Medications: Current Medications Dextrose (Dextrose 50% Inj) 0 ml IVP .STAT PRN; Protocol PRN Reason: Hypoglycemia Protocol Dextrose (Glutose 15) 0 gm PO .ONCE PRN; Protocol PRN Reason: Hypoglycemia Protocol Docusate Sodium (Colace) 100 mg PO BID PRN PRN Reason: Constipation Last Admin: 08/06/17 14:20 Dose: 100 mg Glucagon (Glucagen Diagnostic Kit) 0 mg IM .STAT PRN; Protocol PRN Reason: Hypoglycemia Protocol Heparin Sodium/Sodium Chloride (Heparin 80145 Units/250ml 1/2 Normal Saline) 25 ,000 units in 250 mls @ 14.696 mls/hr IV .Q17H1M PRN; Protocol; 18 UNITS/KG/HR PRN Reason: ADJUST RATE PER PROTOCOL Last Admin: 08/07/17 06:32 Dose: 18 units/kg/hr, 14.696 mls/hr Dextrose (Dextrose 5% In Water 1000 Ml) 1,000 mls @ 0 mls/hr IV .Q0M PRN; Protocol; Per Protocol PRN Reason: Hypoglycemia Protocol Lactated Ringer's (Lactated Ringer's) 1,000 mls @ 125 mls/hr IV .Q8H [facility] Last Admin: 08/07/17 00:03 Dose: 125 mls/hr Ibuprofen (Motrin Tab) 400 mg PO Q6 PRN PRN Reason: Fever >100.4 F Insulin Aspart (Novolog) 4 unit SC ACHS [facility] Last Admin: 08/07/17 08:37 Dose: 4 unit Insulin Glargine (Lantus) 12 unit SC Q12H [facility] Last Admin: 08/07/17 04:57 Dose: 12 units Insulin Human Regular (Novolin R) 0 unit SC ACHS [facility] PRN Reason: Protocol Last Admin: 08/07/17 08:38 Dose: 4 unit Lisinopril (Zestril) 2.5 mg PO DAILY [facility] Last Admin: 08/05/17 09:07 Dose: 2.5 mg Morphine Sulfate (Morphine) 2 mg IVP Q4 PRN PRN Reason: Pain, moderate (4-7) Stop: 08/10/17 23:59 Last Admin: 08/07/17 08:39 Dose: 2 mg Ondansetron HCl (Zofran Inj) 4 mg IVP Q6 PRN PRN Reason: Nausea/Vomiting Pantoprazole Sodium (Protonix Ec Tab) 20 mg PO DAILY [facility] Promethazine HCl/Codeine (Phenergan/Codeine Oral Syrup) 5 ml PO Q4 PRN PRN Reason: Cough Last Admin: 08/03/17 11:53 Dose: 5 ml Rosuvastatin Calcium (Crestor) 20 mg PO HS [facility] Last Admin: 08/06/17 22:38 Dose: 20 mg Temazepam (Restoril) 30 mg PO HS PRN PRN Reason: Insomnia Last Admin: 08/06/17 22:38 Dose: 30 mg - Labs Labs: 08/07/17 08:57 08/06/17 07:15 PT 11.3 SECONDS (9.7-12.2) 08/07/17 08:57 INR 1.0 08/07/17 08:57 APTT 41 SECONDS (21-34) H D 08/07/17 08:57 - Constitutional Appears: Non-toxic, No Acute Distress - Head Exam Head Exam: ATRAUMATIC, NORMAL INSPECTION - Respiratory Exam Respiratory Exam: NORMAL BREATHING PATTERN. absent: Respiratory Distress - Cardiovascular Exam Cardiovascular Exam: +S1, +S2 - Extremities Exam Additional comments: Left leg swelling improved Left DP pulse palpable - Neurological Exam Neurological Exam: Alert, Awake - Psychiatric Exam Psychiatric exam: Normal Affect, Normal Mood Assessment and Plan - Assessment and Plan (Free Text) Assessment: 62yo F with bilateral PE s/p IVC filter POD#5 and extensive clot from SFV to IVC s/p Left LE venogram with TPA & venous mechanical thrombolysis w/ angio jet. Balloon angioplasty of iliac & ivc. Stent to L common & external iliac POD#1 - Will FU AM labs - Hematuria improving - Pain and swelling improving - Heparin drip - Elevate leg - DC fluids and [place] - Needs Coumadin or NOAC at therapeutic level before DC - Discussed plan with Dr. Arin Kennedy PGY-3
[2017-08-07 09:45] LABS: ALB/GLOB RATIO 1.2 (1.0-2.1); ALKALINE PHOSPHATASE 70 U/L (38-126); ALT/SGPT 50 U/L (9-52); AST/SGOT 149 U/L (14-36); BILIRUBIN,TOTAL 1.9 mg/dL (0.2-1.3); BLOOD UREA NITROGEN 17 mg/dL (7-17); CALCIUM 8.1 mg/dl (8.6-10.4); CARBON DIOXIDE 29 mmol/L (22-30); CHLORIDE 99 mmol/L (98-107); GFR AFRICAN-AMERICAN > 60; GLUCOSE,RANDOM 230 mg/dL (65-105); MAGNESIUM 1.6 mg/dL (1.6-2.3); PHOSPHOROUS 2.6 mg/dL (2.5-4.5); POTASSIUM 3.8 mmol/L (3.6-5.2); SODIUM 132 mmol/L (132-148); TOTAL PROTEIN 5.4 g/dL (6.3-8.3)
[2017-08-07] MEDS: Pantoprazole 20 mg EC Tab PO SCH (10:21)
[2017-08-07] MEDS ORDERED: Heparin25000 units/250ml 1/2NS 25,000 UNITS/250 ML BAG IV PRN (10:30)
--- NOTE | 2017-08-07 17:45 | CP.PCM.PN ---
Subjective - Date & Time of Evaluation Date of Evaluation: 08/07/17 Time of Evaluation: 07:40 - Subjective Subjective: Medicine note (PGY-1)--------> Dr. Velez's service Patient was seen and examined at bedside. Patient reports that she is doing well and reports moderate pain as is s/p TPA and venous mechanical thrombolysis with Angio Jet and ballon angioplasty of illiac and IVC, 18x90 stent of left common and external illiac, POD #1. Patient denies chest pain, SOB, palpitations , fever, chills, nausea, vomiting, left leg numbness and tingling. Objective - Vital Signs/Intake and Output Vital Signs (last 24 hours): Temp Pulse Resp BP Pulse Ox 98.9 F 93 H 18 116/67 94 L 08/07/17 16:27 08/07/17 16:27 08/07/17 16:27 08/07/17 16:27 08/07/17 16:27 Intake and Output: 08/07/17 08/07/17 06:59 18:59 Intake Total 490 Output Total 1150 Balance -660 - Medications Medications: Current Medications Dextrose (Dextrose 50% Inj) 0 ml IVP .STAT PRN; Protocol PRN Reason: Hypoglycemia Protocol Dextrose (Glutose 15) 0 gm PO .ONCE PRN; Protocol PRN Reason: Hypoglycemia Protocol Docusate Sodium (Colace) 100 mg PO BID PRN PRN Reason: Constipation Last Admin: 08/06/17 14:20 Dose: 100 mg Glucagon (Glucagen Diagnostic Kit) 0 mg IM .STAT PRN; Protocol PRN Reason: Hypoglycemia Protocol Dextrose (Dextrose 5% In Water 1000 Ml) 1,000 mls @ 0 mls/hr IV .Q0M PRN; Protocol; Per Protocol PRN Reason: Hypoglycemia Protocol Lactated Ringer's (Lactated Ringer's) 1,000 mls @ 125 mls/hr IV .Q8H [facility] Last Admin: 08/07/17 11:50 Dose: Not Given Heparin Sodium/Sodium Chloride (Heparin 95739 Units/250ml 1/2 Normal Saline) 25 ,000 units in 250 mls @ 16.329 mls/hr IV .[id number] PRN; Protocol; 20 UNITS/KG/HR PRN Reason: ADJUST RATE PER PROTOCOL Ibuprofen (Motrin Tab) 400 mg PO Q6 PRN PRN Reason: Fever >100.4 F Insulin Aspart (Novolog) 4 unit SC ACHS [facility] Last Admin: 08/07/17 12:03 Dose: 4 unit Insulin Glargine (Lantus) 12 unit SC Q12H [facility] Last Admin: 08/07/17 04:57 Dose: 12 units Insulin Human Regular (Novolin R) 0 unit SC ACHS [facility] PRN Reason: Protocol Last Admin: 08/07/17 12:03 Dose: 6 unit Lisinopril (Zestril) 2.5 mg PO DAILY [facility] Last Admin: 08/07/17 10:21 Dose: 2.5 mg Morphine Sulfate (Morphine) 2 mg IVP Q4 PRN PRN Reason: Pain, moderate (4-7) Stop: 08/10/17 23:59 Last Admin: 08/07/17 08:39 Dose: 2 mg Ondansetron HCl (Zofran Inj) 4 mg IVP Q6 PRN PRN Reason: Nausea/Vomiting Pantoprazole Sodium (Protonix Ec Tab) 20 mg PO DAILY [facility] Last Admin: 08/07/17 10:21 Dose: 20 mg Promethazine HCl/Codeine (Phenergan/Codeine Oral Syrup) 5 ml PO Q4 PRN PRN Reason: Cough Last Admin: 08/03/17 11:53 Dose: 5 ml Rosuvastatin Calcium (Crestor) 20 mg PO HS [facility] Last Admin: 08/06/17 22:38 Dose: 20 mg Temazepam (Restoril) 30 mg PO HS PRN PRN Reason: Insomnia Last Admin: 08/06/17 22:38 Dose: 30 mg - Labs Labs: 08/07/17 08:57 08/07/17 08:57 PT 11.3 SECONDS (9.7-12.2) 08/07/17 08:57 INR 1.0 08/07/17 08:57 APTT 41 SECONDS (21-34) H D 08/07/17 08:57 - Constitutional Appears: Well, No Acute Distress - Head Exam Head Exam: ATRAUMATIC, NORMAL INSPECTION - Eye Exam Eye Exam: EOMI, Normal appearance - ENT Exam ENT Exam: Mucous Membranes Moist - Respiratory Exam Respiratory Exam: Clear to Ausculation Bilateral, NORMAL BREATHING PATTERN - Cardiovascular Exam Cardiovascular Exam: REGULAR RHYTHM, +S1, +S2 - GI/Abdominal Exam GI & Abdominal Exam: Soft, Normal Bowel Sounds. absent: Tenderness, Diminished Bowel Sounds, Hyperactive Bowel Sounds, Hypoactive Bowel Sounds - Extremities Exam Additional comments: S/p TPA and venous mechanical thrombolysis with Angio Jet and ballon angioplasty of illiac and IVC, 18x90 stent of left common and external illiac, DAISY wrap dressing clean, intact and dry. Right leg is within normal inspection - Neurological Exam Neurological Exam: Alert, Awake, Oriented x3 - Psychiatric Exam Psychiatric exam: Normal Affect, Normal Mood - Skin Skin Exam: Normal Color Assessment and Plan (1) Pulmonary embolism, bilateral Assessment & Plan: Vascular surgeon, Dr. Hinkle on board Imaging: CTA: Bilateral PE, clot burden greatest in the lower lobe arteries Management/Medication: * Heparin drip * IVC filter 08/02/17 Status: Acute (2) Deep venous thrombosis of lower extremity Assessment & Plan: Vascular surgeon, on board Imagin08/01/17: Venous doppler LE: * Left extremity: acute thrombosis with severe reduction of venous return Surgical Intervention: * PA and venous mechanical thrombolysis with Angio Jet and ballon angioplasty of illiac and IVC, 18x90 stent of left common and external illiac (08/06/17) * IVC filter 08/02/17 Medications: * Heparin drip * Morphine 2mg IVP Q4 PRN * Restoril 30mg PO HS Status: Acute (3) Hypercoagulable state Assessment & Plan: R/O hypercoagulable state secondary to malignancy CEA - 2.1 CA 125 - <5.5 CA 19-9 - <1.4 Imaging: Pelvis Ultrasound (08/02/17): Fibroid CT abdomen and pelvis w/o contrast (08/03/17): Findings consistent with extensive left lower extremity deep venous thrombosis as previously demonstrated. No pelvic mass. Inferior vena caval filter noted Status: Acute (4) Diabetes Assessment & Plan: Hemoglobin A1C: 9.1 (08/02/17) Accuchecks Lantus 12 units Q12H Novolog 12 units ACHS ISS- low dose protocol Lisinopril 2.5mg PO daily Hypoglycemic protocol Status: Chronic (5) Constipation Assessment & Plan: Resolving Medications: * Docusate 100mg PO BID PRN Status: Acute (6) Cough Assessment & Plan: Medication: * Promethazine HCl/ Codeine 5ml PO Q4 PRN Status: Acute (7) Prophylactic measure Assessment & Plan: GI: Protonix 20mg PO daily DVT: Heparin drip Crestor 20mg HS Status: Acute
[2017-08-08 00:53] VITALS: RESP 20
[2017-08-08] MEDS: (Lantus) Insulin Glargine, Recombinant SC SCH (05:44)
[2017-08-08 07:10] LABS: INR 1.1
[2017-08-08 07:37] LABS: BASO # 0.1 K/uL (0.0-0.2); BASO % 0.4 % (0.0-2.0); EOS # 0.4 K/uL (0.0-0.7); EOS % 2.4 % (0.0-4.0); HEMATOCRIT 29.2 % (34.0-47.0); LYMPH # 4.3 K/uL (1.0-4.3); LYMPH % 24.2 % (20.0-40.0); MEAN CELL VOLUME 89.2 fL (81.0-99.0); MEAN CORPUSCULAR HEMOGLOBIN 30.1 pg (27.0-31.0); MEAN CORPUSCULAR HGB CONC 33.7 g/dL (33.0-37.0); MEAN PLATELET VOLUME 11.3 fL (7.2-11.7); MONO # 1.3 K/uL (0.0-0.8); MONO % 7.3 % (0.0-10.0); NRBC % 0.1 % (0.0-2.0); RED CELL DISTRIBUTION WIDTH 13.1 % (11.5-14.5); WHITE BLOOD COUNT 17.8 K/uL (4.8-10.8)
[2017-08-08] MEDS ORDERED: Heparin25000 units/250ml 1/2NS 25,000 UNITS/250 ML BAG IV PRN (07:45)
[2017-08-08 07:47] LABS: ALB/GLOB RATIO 0.8 (1.0-2.1); ALKALINE PHOSPHATASE 74 U/L (38-126); ALT/SGPT 46 U/L (9-52); AST/SGOT 56 U/L (14-36); BILIRUBIN,TOTAL 0.8 mg/dL (0.2-1.3); BLOOD UREA NITROGEN 10 mg/dL (7-17); CALCIUM 8.2 mg/dl (8.6-10.4); CARBON DIOXIDE 27 mmol/L (22-30); CHLORIDE 98 mmol/L (98-107); GFR AFRICAN-AMERICAN > 60; GLUCOSE,RANDOM 254 mg/dL (65-105); MAGNESIUM 1.6 mg/dL (1.6-2.3); PHOSPHOROUS 3.3 mg/dL (2.5-4.5); POTASSIUM 3.5 mmol/L (3.6-5.2); SODIUM 131 mmol/L (132-148); TOTAL PROTEIN 6.4 g/dL (6.3-8.3)
[2017-08-08] MEDS: (Novolin R) Insulin Human Regular 100 units/ml vial SC SCH ×2 (08:17→13:11)
[2017-08-08] MEDS: (Novolog) Insulin Aspart, Recombinant 100 u/ml 10 ml vial SC SCH ×2 (08:17→13:11)
[2017-08-08 08:40] VITALS: BP 98/60; TEMP 98.2; O2SAT 94
[2017-08-08] MEDS ORDERED: Potassium Chloride 20 mEq ER Tab PO ONE ×2 (09:31→10:43)
[2017-08-08] MEDS: Pantoprazole 20 mg EC Tab PO SCH (10:44)
--- NOTE | 2017-08-08 13:43 | CP.PCM.PN ---
Subjective - Date & Time of Evaluation Date of Evaluation: 08/08/17 Time of Evaluation: 13:42 - Subjective Subjective: dw swelling less fu dwp needs anticoagulants Objective - Vital Signs/Intake and Output Vital Signs (last 24 hours): Temp Pulse Resp BP Pulse Ox 98.2 F 90 20 98/60 L 94 L 08/08/17 08:39 08/08/17 08:39 08/08/17 08:39 08/08/17 08:39 08/08/17 08:39 Intake and Output: 08/08/17 08/08/17 06:59 18:59 Intake Total 480 Output Total 1000 Balance -520 - Medications Medications: Current Medications Dextrose (Dextrose 50% Inj) 0 ml IVP .STAT PRN; Protocol PRN Reason: Hypoglycemia Protocol Dextrose (Glutose 15) 0 gm PO .ONCE PRN; Protocol PRN Reason: Hypoglycemia Protocol Docusate Sodium (Colace) 100 mg PO BID PRN PRN Reason: Constipation Last Admin: 08/06/17 14:20 Dose: 100 mg Glucagon (Glucagen Diagnostic Kit) 0 mg IM .STAT PRN; Protocol PRN Reason: Hypoglycemia Protocol Dextrose (Dextrose 5% In Water 1000 Ml) 1,000 mls @ 0 mls/hr IV .Q0M PRN; Protocol; Per Protocol PRN Reason: Hypoglycemia Protocol Heparin Sodium/Sodium Chloride (Heparin 69615 Units/250ml 1/2 Normal Saline) 25 ,000 units in 250 mls @ 14.696 mls/hr IV .Q17H1M PRN; Protocol; 18 UNITS/KG/HR PRN Reason: ADJUST RATE PER PROTOCOL Ibuprofen (Motrin Tab) 400 mg PO Q6 PRN PRN Reason: Fever >100.4 F Insulin Aspart (Novolog) 4 unit SC ACHS [facility] Last Admin: 08/08/17 13:11 Dose: 4 unit Insulin Glargine (Lantus) 12 unit SC Q12H [facility] Last Admin: 08/08/17 05:44 Dose: 12 units Insulin Human Regular (Novolin R) 0 unit SC ACHS [facility] PRN Reason: Protocol Last Admin: 08/08/17 13:11 Dose: 4 unit Lisinopril (Zestril) 2.5 mg PO DAILY [facility] Last Admin: 08/08/17 10:44 Dose: 2.5 mg Morphine Sulfate (Morphine) 2 mg IVP Q4 PRN PRN Reason: Pain, moderate (4-7) Stop: 08/10/17 23:59 Last Admin: 08/08/17 10:50 Dose: 2 mg Ondansetron HCl (Zofran Inj) 4 mg IVP Q6 PRN PRN Reason: Nausea/Vomiting Pantoprazole Sodium (Protonix Ec Tab) 20 mg PO DAILY ABIDA Last Admin: 08/08/17 10:44 Dose: 20 mg Promethazine HCl/Codeine (Phenergan/Codeine Oral Syrup) 5 ml PO Q4 PRN PRN Reason: Cough Last Admin: 08/03/17 11:53 Dose: 5 ml Rosuvastatin Calcium (Crestor) 20 mg PO HS ABIDA Last Admin: 08/07/17 21:58 Dose: 20 mg Temazepam (Restoril) 30 mg PO HS PRN PRN Reason: Insomnia Last Admin: 08/07/17 21:58 Dose: 30 mg - Labs Labs: 08/08/17 06:51 08/08/17 06:51 PT 11.8 SECONDS (9.7-12.2) 08/08/17 06:51 INR 1.1 08/08/17 06:51 APTT 97 SECONDS (21-34) H D 08/08/17 06:51
--- NOTE | 2017-08-08 16:05 | CP.PCM.DIS ---
Provider - Provider Date of Admission: 08/01/17 15:44 Attending physician: Brandon Bauer Jr, MD Time Spent in preparation of Discharge (in minutes): 45 Diagnosis - Discharge Diagnosis (1) Pulmonary embolism, bilateral Status: Acute (2) Deep venous thrombosis of lower extremity Status: Acute Priority: High (3) Hypercoagulable state Status: Acute (4) Diabetes Status: Chronic Priority: Medium (5) Constipation Status: Acute (6) Cough Status: Acute (7) Prophylactic measure Status: Acute Hospital Course - Lab Results Lab Results: Most Recent Lab Values WBC 17.8 K/uL (4.8-10.8) H 08/08/17 06:51 RBC 3.28 Mil/uL (3.80-5.20) L 08/08/17 06:51 Hgb 9.9 g/dL (11.0-16.0) L 08/08/17 06:51 Hct 29.2 % (34.0-47.0) L 08/08/17 06:51 MCV 89.2 fL (81.0-99.0) 08/08/17 06:51 MCH 30.1 pg (27.0-31.0) 08/08/17 06:51 MCHC 33.7 g/dL (33.0-37.0) 08/08/17 06:51 RDW 13.1 % (11.5-14.5) 08/08/17 06:51 Plt Count 209 K/uL (130-400) 08/08/17 06:51 MPV 11.3 fL (7.2-11.7) 08/08/17 06:51 Neut % (Auto) 65.7 % (50.0-75.0) 08/08/17 06:51 Lymph % (Auto) 24.2 % (20.0-40.0) 08/08/17 06:51 Butts % (Auto) 7.3 % (0.0-10.0) 08/08/17 06:51 Eos % (Auto) 2.4 % (0.0-4.0) 08/08/17 06:51 Baso % (Auto) 0.4 % (0.0-2.0) 08/08/17 06:51 Neut # 11.7 K/uL (1.8-7.0) H 08/08/17 06:51 Lymph # 4.3 K/uL (1.0-4.3) 08/08/17 06:51 Butts # 1.3 K/uL (0.0-0.8) H 08/08/17 06:51 Eos # 0.4 K/uL (0.0-0.7) 08/08/17 06:51 Baso # 0.1 K/uL (0.0-0.2) 08/08/17 06:51 PT 11.8 SECONDS (9.7-12.2) 08/08/17 06:51 INR 1.1 08/08/17 06:51 APTT 67 SECONDS (21-34) H D 08/08/17 13:43 Sodium 131 mmol/L (132-148) L 08/08/17 06:51 Potassium 3.5 mmol/L (3.6-5.2) L 08/08/17 06:51 Chloride 98 mmol/L (98-107) 08/08/17 06:51 Carbon Dioxide 27 mmol/L (22-30) 08/08/17 06:51 Anion Gap 10 (10-20) 08/08/17 06:51 BUN 10 mg/dL (7-17) 08/08/17 06:51 Creatinine 0.7 mg/dL (0.7-1.2) 08/08/17 06:51 Est GFR ( Amer) > 60 08/08/17 06:51 Est GFR (Non-Af Amer) > 60 08/08/17 06:51 POC Glucose (mg/dL) 304 mg/dL (65-110) H 08/08/17 12:16 Random Glucose 254 mg/dL (65-105) H 08/08/17 06:51 Hemoglobin A1c 9.1 % (4.2-6.5) H 08/02/17 08:38 Calcium 8.2 mg/dl (8.6-10.4) L 08/08/17 06:51 Phosphorus 3.3 mg/dL (2.5-4.5) 08/08/17 06:51 Magnesium 1.6 mg/dL (1.6-2.3) 08/08/17 06:51 Total Bilirubin 0.8 mg/dL (0.2-1.3) 08/08/17 06:51 AST 56 U/L (14-36) H D 08/08/17 06:51 ALT 46 U/L (9-52) 08/08/17 06:51 Alkaline Phosphatase 74 U/L (38-126) 08/08/17 06:51 Total Creatine Kinase 1004 U/L (30-135) H 08/02/17 12:33 CK-MB (Mass) 3.33 ng/mL (0.0-3.38) 08/02/17 12:33 Troponin I < 0.0120 ng/mL (0.00-0.120) 08/01/17 20:55 Troponin I, Quant < 0.0120 ng/mL (0.00-0.120) 08/02/17 12:33 NT-Pro-B Natriuret Pep 19.9 pg/mL (0-900) 08/01/17 14:58 Total Protein 6.4 g/dL (6.3-8.3) 08/08/17 06:51 Albumin 2.9 g/dL (3.5-5.0) L 08/08/17 06:51 Globulin 3.5 gm/dL (2.2-3.9) 08/08/17 06:51 Albumin/Globulin Ratio 0.8 (1.0-2.1) L 08/08/17 06:51 Carcinoembryonic Ag 2.1 ng/mL (0-3.0) 08/03/17 07:39 CA 19-9 Antigen < 1.4 U/mL (0-37) 08/03/17 07:39 CA 125 Antigen < 5.5 U/mL (0-35) 08/03/17 07:39 Urine Color Yellow (YELLOW) 08/01/17 22:43 Urine Clarity Clear (Clear) 08/01/17 22:43 Urine pH 5.0 (5.0-8.0) 08/01/17 22:43 Ur Specific Dyer 1.045 (1.003-1.030) H 08/01/17 22:43 Urine Protein Negative mg/dL (NEGATIVE) 08/01/17 22:43 Urine Glucose (UA) 3+ mg/dL (Normal) H 08/01/17 22:43 Urine Ketones Trace mg/dL (NEGATIVE) 08/01/17 22:43 Urine Blood Negative (NEGATIVE) 08/01/17 22:43 Urine Nitrate Negative (NEGATIVE) 08/01/17 22:43 Urine Bilirubin Negative (NEGATIVE) 08/01/17 22:43 Urine Urobilinogen Normal mg/dL (0.2-1.0) 08/01/17 22:43 Ur Leukocyte Esterase Neg Areli/uL (Negative) 08/01/17 22:43 Urine WBC (Auto) 1 /hpf (0-5) 08/01/17 22:43 Urine RBC (Auto) 1 /hpf (0-3) 08/01/17 22:43 Ur Squamous Epith Cells 9 /hpf (0-5) H 08/01/17 22:43 Blood Type O POSITIVE 08/05/17 07:35 Antibody Screen Negative 08/05/17 07:35 - Hospital Course Hospital Course: HPI ( As per admission): Patience is a 62F with a PMH of DM, CAD, HLD comes to the ED with acute onset of L. Leg pain. She states the pain is very severe and nothing makes it better or worse. She describes the pain as sharp. The pain radiates up the leg from below the knee. She describes it as very severe. It has been constant since its onset. She is also complaining of SOB, cough and chest pain. She was given lovenox 80mg in the ED as well as morphine for the pain. She denies any nausea, vomiting, fever, chills or diarrhea. Hospital course: Patient was admitted with the consideration of DVT with Preliminary LE Doppler noting Extensive LLE DVT. Vascular surgery, Dr. Hinkle was consulted, for recommendation for IVC filter placement. Furthermore, CT angiogram confirmed bilateral PE, therefore patient was recommended for Thrombolysis/thrombectomy while being on anticoagulation. During the course of admission, patient was worked up to rule out malignancy as possible course for a hypercoagulable state ; all imaging was noted to be negative for malignancy. Patient tolerated venous mechanical thrombolysis with Angio Jet and ballon angioplasty of illiac and IVC , 18x90 stent of left common and external illiac well. Patient had no acute during her admission. Patient was then cleared by her medical team and discharged home on eliquis. Pertinent imaging: Venous doppler LE (08/01/17): * Left extremity: acute thrombosis with severe reduction of venous return CTA: Bilateral PE, clot burden greatest in the lower lobe arteries Pelvis Ultrasound (08/02/17): Fibroid CT abdomen and pelvis w/o contrast (08/03/17): Findings consistent with extensive left lower extremity deep venous thrombosis as previously demonstrated. No pelvic mass. Inferior vena caval filter noted This is a brief summary of event. For a complete hospital course, please refer to medical records. Discharge Exam - Head Exam Head Exam: ATRAUMATIC, NORMAL INSPECTION - Eye Exam Eye Exam: EOMI, Normal appearance - ENT Exam ENT Exam: Mucous Membranes Moist - Respiratory Exam Respiratory Exam: Clear to PA & Lateral, NORMAL BREATHING PATTERN - Cardiovascular Exam Cardiovascular Exam: REGULAR RHYTHM, +S1, +S2 - GI/Abdominal Exam GI & Abdominal Exam: Normal Bowel Sounds, Soft - Extremities Exam Extremities exam: normal inspection Additional comments: Palpable Dorsal pedis and posterior tibialis ( LLE) - Neurological Exam Neurological exam: Alert, Oriented x3 - Psychiatric Exam Psychiatric exam: Normal Affect - Skin Skin Exam: Normal Color Discharge Plan - Discharge Medications Prescriptions: Apixaban [Eliquis] 5 mg PO BID 30 Days #60 tablet - Follow Up Plan Condition: STABLE Disposition: HOME/ ROUTINE Instructions: Apixaban (By mouth), Deep Venous Thrombosis (DC), Inferior Vena Cava Filter Placement (DC), Peripheral Vascular Angioplasty (DC), Angiogram (DC) Additional Instructions: Please discharge patient home as per Dr. Bauer Please start the following new medication: 1. Eliquis 5mg po bid Please resume all you home medication as prescribed Please follow up with your PMD, Dr. Vicente in [address] bauer, Please return to work in 2 weeks Please return to the hospital with symptoms of fever, chills, SOB, chest pain, palpitations, weakness and dizziness Referrals: Brandon Bauer Jr., MD [Medical Doctor] -
[2017-08-08 22:19] VITALS: PULSE 86
== END 2017-08-08 18:21 | disposition home or self-care (01) | DRG 539 ==
LOC: C.ER 14:10 → C.9E 15:44 → C.6T 18:46
PROVIDERS: ADMIT Internal Medicine; ATTEND Internal Medicine
PROC: 06H03DZ Insertion of Intraluminal Device into Inferior Vena Cava, Percutaneous Approach (ICD-10-PCS; principal; 2017-08-02 17:15)
PROC: 047D3DZ Dilation of Left Common Iliac Artery with Intraluminal Device, Percutaneous Approach (ICD-10-PCS; 2017-08-06)
PROC: B519YZA Fluoroscopy of Inferior Vena Cava using Other Contrast, Guidance (ICD-10-PCS; 2017-08-06)
DX: I26.99 Other pulmonary embolism without acute cor pulmonale (principal); I82.402 Acute embolism and thrombosis of unspecified deep veins of left lower extremity; J45.909 Unspecified asthma, uncomplicated; E11.9 Type 2 diabetes mellitus without complications; M81.0 Age-related osteoporosis without current pathological fracture; E78.00 Pure hypercholesterolemia, unspecified; M19.90 Unspecified osteoarthritis, unspecified site; F17.210 Nicotine dependence, cigarettes, uncomplicated; I25.10 Atherosclerotic heart disease of native coronary artery without angina pectoris; Z79.4 Long term (current) use of insulin